=== PATIENT | male | born 1960 | race Asian ===

== ENCOUNTER → 2016-08-01 | Outpatient (CLI) | payer BC ==
[2016-08-01 12:34] LABS: Basophils % (A) 0 %; CH 28.9; CHCM 33.3; Eosinophils # (A) 0.1 k/uL (0-0.7); Eosinophils % (A) 2 %; HCT 43.5 % (39.0-53.0); HDW 2.48; HGB 14.3 gm/dL (13.0-17.5); Luc # (Auto) 0.11; Luc % (Auto) 2; Lymphocytes # (A) 2.3 k/uL (1.0-4.8); Lymphocytes % (A) 38 %; MCH 28.6 pg (25.0-35.0); MCHC 32.8 g/dL (31.0-37.0); MCV 87.2 fL (80.0-100.0); Mean Platelet Volume 8.8; Monocytes # (A) 0.2 k/uL (0-1.0); Monocytes % (A) 4 %; Neutrophils # (A) 3.2 k/uL (1.3-7.7); Neutrophils % (A) 54 %; RBC 4.99 m/uL (4.30-5.90); WBC (Perox) 6.17
[2016-08-01 12:47] LABS: ALT 32 U/L (21-72); AST 21 U/L (17-59); Alkaline Phosphatase 41 U/L (38-126); Amylase 49 U/L (30-110); Anion Gap 11 mmol/L; Blood Urea Nitrogen 15 mg/dL (9-20); Calcium 9.5 mg/dL (8.4-10.2); Carbon Dioxide 26 mmol/L (22-30); Chloride 103 mmol/L (98-107); Glucose 92 mg/dL (74-99); Non-African American GFR(MDRD) >60 (>60 ml/min/1.73 sqM); Potassium 4.5 mmol/L (3.5-5.1); Sodium 140 mmol/L (137-145); Total Bilirubin 0.6 mg/dL (0.2-1.3); Total Protein 7.2 g/dL (6.3-8.2)
[2016-08-01 13:54] LABS: Erythrocyte Sedimentation Rate 2 mm/hr (0-15)
== END | disposition home or self-care (01) ==
LOC: LABWHC1 12:11
PROVIDERS: ATTEND Family Medicine
DX: R10.9 Unspecified abdominal pain (principal)
CPT/HCPCS: 36415; 80053; 82150; 83690; 85025; 85652

== ENCOUNTER → 2016-08-02 | Outpatient (CLI) | payer BC ==
--- NOTE | 2016-08-02 08:30 | US ---
EXAMINATION TYPE: US abdomen complete DATE OF EXAM: 08/02/2016 7:47 AM COMPARISON: NONE CLINICAL HISTORY: R10.9 Abd Pain. EXAM MEASUREMENTS: Liver Length: 19 cm Gallbladder Wall: 0.2 cm CBD: 0.2 cm Spleen: 11 cm Right Kidney: 11.7 cm Left Kidney: 11.3 cm Pancreas: wnl, not seen in its entirety Liver: Perhaps borderline enlarged Gallbladder: wnl CBD: wnl Spleen: wnl Right Kidney: wnl Left Kidney: wnl Upper IVC: wnl Abd Aorta: wnl There is no ascites There is no hydronephrosis. IMPRESSION: Borderline enlarged liver.
== END | disposition home or self-care (01) ==
LOC: RADUSWWP 06:55
PROVIDERS: ATTEND Family Medicine
DX: R16.0 Hepatomegaly, not elsewhere classified (principal); R10.9 Unspecified abdominal pain
CPT/HCPCS: 76700

== ENCOUNTER → 2016-08-02 | Outpatient (CLI) | payer BC ==
--- NOTE | 2016-08-03 00:20 | MR ---
EXAMINATION TYPE: MR abdomen wo/w con DATE OF EXAM: 08/02/2016 10:07 PM COMPARISON: NONE HISTORY: Abdominal pain CONTRAST: Standard multiplanar, multisequence MRI departmental protocol without and utilizing MultiHance 20 mL intravenous gadolinium contrast. FINDINGS: The liver has normal size and contour. There is no focal defect. Gallbladder appears normal . Spleen has normal size and contour without a focal defect. There is uniform appearance of the pancr eas. There is no evidence of pancreatic mass. Bile ducts are not dilated. There is no evidence of adrenal mass. Kidneys have normal size and contour. There is no hydronephrosi s. There is no sign of retroperitoneal adenopathy. Common bile duct measures 5 mm. Pancreatic duct is normal. There is no sign of ascites. The remainder of the exam is unremarkable. There is no patholog ic enhancement. IMPRESSION: Negative MR scan of the abdomen. There is no evidence of abnormality of the hepatobiliary system.
== END | disposition home or self-care (01) ==
LOC: RADMRIMAIN 21:10
PROVIDERS: ATTEND Family Medicine
DX: R10.9 Unspecified abdominal pain (principal)
CPT/HCPCS: 74183; A9577; 76700

== ENCOUNTER → 2017-01-13 | Outpatient (CLI) | payer BC ==
[2017-01-13 08:20] LABS: CH 29.3; CHCM 33.1; HDW 2.57; HGB 14.3 gm/dL (13.0-17.5); MCH 28.9 pg (25.0-35.0); MCHC 32.5 g/dL (31.0-37.0); MCV 88.9 fL (80.0-100.0); RBC 4.96 m/uL (4.30-5.90); RDW 13.9 % (11.5-15.5); WBC 5.4 k/uL (3.8-10.6)
[2017-01-13 08:59] LABS: ALT 26 U/L (21-72); AST 21 U/L (17-59); Alkaline Phosphatase 41 U/L (38-126); Anion Gap 12 mmol/L; Blood Urea Nitrogen 15 mg/dL (9-20); Calcium 9.5 mg/dL (8.4-10.2); Carbon Dioxide 26 mmol/L (22-30); Chloride 106 mmol/L (98-107); Cholesterol 144 mg/dL (<200); Glucose 98 mg/dL (74-99); HDL Cholesterol 28 mg/dL (40-60); Non-African American GFR(MDRD) >60 (>60 ml/min/1.73 sqM); Sodium 144 mmol/L (137-145); Total Bilirubin 0.7 mg/dL (0.2-1.3); Total Protein 6.8 g/dL (6.3-8.2); Triglycerides 123 mg/dL (<150)
[2017-01-13 09:29] LABS: Hepatitis B Surface Ag Index 0.04
[2017-01-13 10:45] LABS: Prostate Specific Antigen 1.33 ng/mL (0.00-4.00)
[2017-01-13 17:19] LABS: Sex Hormone Binding Globulin 24.2 nmol/L (11.0-57.0); Testosterone, Bioavailable 156.4 ng/dL (60.8-409.9); Testosterone, Free 6.4 ng/dL (3.70-23.28)
== END | disposition home or self-care (01) ==
LOC: LABWHC1 07:35
PROVIDERS: ATTEND Family Medicine
DX: Z00.00 Encounter for general adult medical examination without abnormal findings (principal); E23.0 Hypopituitarism
CPT/HCPCS: 36415; 80053; 80061; 82040; 82306; 82626; 82672; 84153; 84270; 84403; 84443; 85027; 87340

== ENCOUNTER → 2017-03-03 | Outpatient (CLI) | payer BC ==
[2017-03-03 09:03] LABS: Basophils % (A) 0 %; CHCM 33.4; Eosinophils % (A) 0 %; HCT 41.3 % (39.0-53.0); HGB 13.1 gm/dL (13.0-17.5); Luc # (Auto) 0.11; Luc % (Auto) 2; Lymphocytes # (A) 1.8 k/uL (1.0-4.8); Lymphocytes % (A) 26 %; MCH 27.8 pg (25.0-35.0); MCHC 31.8 g/dL (31.0-37.0); MCV 87.4 fL (80.0-100.0); Mean Platelet Volume 9.6; Monocytes # (A) 0.3 k/uL (0-1.0); Monocytes % (A) 4 %; Neutrophils # (A) 4.8 k/uL (1.3-7.7); Neutrophils % (A) 68 %; RBC 4.72 m/uL (4.30-5.90); RDW 13.2 % (11.5-15.5); WBC (Perox) 7.33
[2017-03-03 09:59] LABS: ALT 26 U/L (21-72); AST 19 U/L (17-59); Alkaline Phosphatase 56 U/L (38-126); Anion Gap 11 mmol/L; Blood Urea Nitrogen 16 mg/dL (9-20); Calcium 9.4 mg/dL (8.4-10.2); Carbon Dioxide 28 mmol/L (22-30); Chloride 104 mmol/L (98-107); Glucose 96 mg/dL (74-99); Non-African American GFR(MDRD) >60 (>60 ml/min/1.73 sqM); Potassium 4.1 mmol/L (3.5-5.1); Sodium 143 mmol/L (137-145); Total Bilirubin 0.3 mg/dL (0.2-1.3); Total Protein 6.5 g/dL (6.3-8.2)
[2017-03-03 10:29] LABS: Prostate Specific Antigen 1.27 ng/mL (0.00-4.00)
[2017-03-03 18:31] LABS: Testosterone, Bioavailable 156.8 ng/dL (60.8-409.9); Testosterone, Free 6.5 ng/dL (3.70-23.28)
== END ==
LOC: LABWHC1 07:52
PROVIDERS: ATTEND Family Medicine
DX: I10 Essential (primary) hypertension (principal); R73.9 Hyperglycemia, unspecified; E29.1 Testicular hypofunction
CPT/HCPCS: 36415; 80053; 82040; 82306; 82672; 83036; 83525; 84153; 84270; 84403; 85025

== ENCOUNTER → 2017-10-20 | Outpatient (CLI) | payer BC ==
[2017-10-20 11:55] LABS: Basophils % (A) 0 %; Eosinophils % (A) 1 %; HCT 44.5 % (39.0-53.0); HGB 15.2 gm/dL (13.0-17.5); Lymphocytes # (A) 1.9 k/uL (1.0-4.8); Lymphocytes % (A) 45 %; MCH 28.5 pg (25.0-35.0); MCHC 34.1 g/dL (31.0-37.0); MCV 83.6 fL (80.0-100.0); Mean Platelet Volume 8.5; Monocytes # (A) 0.2 k/uL (0-1.0); Monocytes % (A) 4 %; Neutrophils % (A) 48 %; Platelet Count 196 k/uL (150-450); RBC 5.32 m/uL (4.30-5.90); RDW 12.7 % (11.5-15.5); WBC 4.2 k/uL (3.8-10.6)
[2017-10-20 12:09] LABS: ALT 30 U/L (21-72); AST 28 U/L (17-59); Albumin 4.6 g/dL (3.5-5.0); Alkaline Phosphatase 47 U/L (38-126); Anion Gap 15 mmol/L; Blood Urea Nitrogen 17 mg/dL (9-20); Carbon Dioxide 28 mmol/L (22-30); Chloride 102 mmol/L (98-107); Cholesterol 121 mg/dL (<200); Glucose 96 mg/dL (74-99); HDL Cholesterol 29 mg/dL (40-60); LDL Cholesterol,Calculated 66 mg/dL (0-99); Potassium 4.6 mmol/L (3.5-5.1); Sodium 145 mmol/L (137-145); Total Bilirubin 0.6 mg/dL (0.2-1.3); Total Protein 7.4 g/dL (6.3-8.2); Triglycerides 130 mg/dL (<150)
[2017-10-20 12:39] LABS: Prostate Specific Antigen 1.13 ng/mL (0.00-4.00)
[2017-10-20 17:58] LABS: Hemoglobin A1C 6.2 % (4.0-6.0)
== END | disposition home or self-care (01) ==
LOC: LABWHC1 11:03
PROVIDERS: ATTEND Internal Medicine
DX: Z00.00 Encounter for general adult medical examination without abnormal findings (principal); E23.0 Hypopituitarism; Z12.5 Encounter for screening for malignant neoplasm of prostate
CPT/HCPCS: 36415; 80053; 80061; 82672; 83036; 84153; 84402; 84403; 85025

== ENCOUNTER → 2018-03-23 | Outpatient (CLI) | payer BC ==
[2018-03-23 11:04] LABS: Basophils % (A) 0 %; Eosinophils % (A) 1 %; HCT 46.6 % (39.0-53.0); HGB 14.9 gm/dL (13.0-17.5); Lymphocytes # (A) 1.5 k/uL (1.0-4.8); Lymphocytes % (A) 40 %; MCH 27.8 pg (25.0-35.0); MCV 86.9 fL (80.0-100.0); Monocytes # (A) 0.2 k/uL (0-1.0); Monocytes % (A) 6 %; Neutrophils # (A) 1.9 k/uL (1.3-7.7); Neutrophils % (A) 51 %; Platelet Count 210 k/uL (150-450); RBC 5.36 m/uL (4.30-5.90); RDW 13.1 % (11.5-15.5); WBC 3.6 k/uL (3.8-10.6)
[2018-03-23 12:27] LABS: ALT 27 U/L (21-72); AST 27 U/L (17-59); Albumin 4.4 g/dL (3.5-5.0); Alkaline Phosphatase 53 U/L (38-126); Anion Gap 9 mmol/L; Blood Urea Nitrogen 12 mg/dL (9-20); Calcium 9.9 mg/dL (8.4-10.2); Carbon Dioxide 28 mmol/L (22-30); Chloride 106 mmol/L (98-107); Cholesterol 163 mg/dL (<200); Glucose 109 mg/dL (74-99); HDL Cholesterol 21 mg/dL (40-60); LDL Cholesterol,Calculated 120 mg/dL (0-99); Potassium 5.3 mmol/L (3.5-5.1); Sodium 143 mmol/L (137-145); Total Bilirubin 0.7 mg/dL (0.2-1.3); Total Protein 7.5 g/dL (6.3-8.2); Triglycerides 110 mg/dL (<150)
[2018-03-23 12:41] LABS: T4, Free (Free Thyroxine) 0.79 ng/dL (0.78-2.19)
[2018-03-23 12:55] LABS: Prostate Specific Antigen 1.62 ng/mL (0.00-4.00)
[2018-03-23 17:49] LABS: Hemoglobin A1C 6.2 % (4.0-6.0)
[2018-03-26 22:49] LABS: Testosterone, Free, LC/MS/MS 128.7 pg/mL (46.0-224.0)
== END ==
LOC: LABWHC1 09:45
PROVIDERS: ATTEND Family Medicine
DX: Z00.00 Encounter for general adult medical examination without abnormal findings (principal); E23.0 Hypopituitarism; Z12.5 Encounter for screening for malignant neoplasm of prostate
CPT/HCPCS: 36415; 80053; 80061; 82040; 82306; 82672; 83036; 84153; 84270; 84403; 84439; 84443; 85025

== ENCOUNTER → 2018-06-17 | Outpatient (CLI) | payer BC ==
[2018-06-17 09:22] LABS: Basophils % (A) 0 %; Eosinophils % (A) 1 %; HCT 44.4 % (39.0-53.0); HGB 14.2 gm/dL (13.0-17.5); Lymphocytes # (A) 1.8 k/uL (1.0-4.8); Lymphocytes % (A) 45 %; MCH 26.9 pg (25.0-35.0); MCV 84.3 fL (80.0-100.0); Monocytes # (A) 0.2 k/uL (0-1.0); Monocytes % (A) 4 %; Neutrophils # (A) 1.9 k/uL (1.3-7.7); Neutrophils % (A) 47 %; Platelet Count 216 k/uL (150-450); RBC 5.27 m/uL (4.30-5.90); RDW 13.1 % (11.5-15.5)
[2018-06-17 16:33] LABS: Albumin 4.6 g/dL (3.80-4.90); Albumin/Globulin Ratio 2.42 (1.20-2.10); Anion Gap 7.3 mmol/L (4.00-12.00); Calcium 9.3 mg/dL (8.7-10.3); Carbon Dioxide 27.7 mmol/L (21.6-31.8); Globulin 1.9 g/dL (1.6-3.3); LDL Cholesterol,Calculated 84.4 mg/dL (0.0-131.0); Potassium 4.6 mmol/L (3.5-5.5); Total Bilirubin 0.6 mg/dL (0.3-1.2); Total Protein 6.5 g/dL (6.2-8.2); VLDL Calculation 18.6 mg/dL (5.00-40.00)
[2018-06-17 17:47] LABS: Hemoglobin A1C 6.5 % (4.0-6.0)
[2018-06-19 18:55] LABS: Estrogens Total 144 pg/mL
== END ==
LOC: LABWHC1 08:45
PROVIDERS: ATTEND Family Medicine
DX: Z00.00 Encounter for general adult medical examination without abnormal findings (principal); E29.1 Testicular hypofunction; Z12.5 Encounter for screening for malignant neoplasm of prostate
CPT/HCPCS: 36415; 80053; 80061; 82040; 82672; 83036; 84153; 84270; 84403; 84443; 85025

== ENCOUNTER 2018-07-30 12:45 | Inpatient (IN) | payer BC ==
--- NOTE | 2018-07-30 12:27 | CT ---
EXAMINATION TYPE: CT brain wo con DATE OF EXAM: 07/30/2018 HISTORY: Dizziness and headache x [address] DLP: 1227 mGycm. Automated Exposure Control for Dose Reduction was Utilized. TECHNIQUE: CT scan of the head is performed without contrast. COMPARISON: None. FINDINGS: There is no acute intracranial hemorrhage or midline shift identified. There is diffuse v entricular and sulcal prominence consistent with diffuse age-related cerebral atrophy. There is nons pecific area of low-attenuation right frontal parietal junction with subtle sulcal effacement. The g lobes are intact and the visualized sinuses are clear. IMPRESSION: No acute intracranial hemorrhage or midline shift. There is mild diffuse age-related ce rebral atrophy noted. Vague area of low-attenuation suspicious for evolving acute infarct right MCA d istribution involving frontal and parietal lobes. Results communicated to ordering physician by radiology technologist via telephone at time of dictation.
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
[2018-07-30 13:31] LABS: Basophils % (A) 1 %; Eosinophils # (A) 0.1 k/uL (0-0.7); Eosinophils % (A) 1 %; HCT 46.9 % (39.0-53.0); HGB 15.2 gm/dL (13.0-17.5); Lymphocytes # (A) 1.6 k/uL (1.0-4.8); Lymphocytes % (A) 35 %; MCH 27.7 pg (25.0-35.0); MCHC 32.5 g/dL (31.0-37.0); MCV 85.2 fL (80.0-100.0); Monocytes # (A) 0.2 k/uL (0-1.0); Monocytes % (A) 4 %; Neutrophils # (A) 2.6 k/uL (1.3-7.7); Neutrophils % (A) 58 %; Platelet Count 189 k/uL (150-450); RBC 5.51 m/uL (4.30-5.90); RDW 13.9 % (11.5-15.5); WBC 4.5 k/uL (3.8-10.6)
[2018-07-30 13:42] LABS: ALT 35 U/L (21-72); AST 21 U/L (17-59); Albumin 4.8 g/dL (3.5-5.0); Alkaline Phosphatase 47 U/L (38-126); Anion Gap 10 mmol/L; Blood Urea Nitrogen 15 mg/dL (9-20); Calcium 9.8 mg/dL (8.4-10.2); Carbon Dioxide 26 mmol/L (22-30); Chloride 104 mmol/L (98-107); Glucose 96 mg/dL (74-99); Potassium 4.5 mmol/L (3.5-5.1); Sodium 140 mmol/L (137-145); Total Bilirubin 0.7 mg/dL (0.2-1.3); Total Protein 7.8 g/dL (6.3-8.2)
[2018-07-30 13:44] LABS: Partial Thromboplastin Time 25.9 sec (22.0-30.0)
--- NOTE | 2018-07-30 13:47 | CT ---
EXAMINATION TYPE: CT angio head neck DATE OF EXAM: 07/30/2018 HISTORY: Migraine and dizziness, abnormal CT. Neurodeficits per order. COMPARISON: NONE CT DLP: 607.1 mGycm. Automated Exposure Control for Dose Reduction was Utilized. TECHNIQUE: CTA scan of the head and neck are performed with IV Contrast, patient injected with 65 mL of Isovue 370, axial images are obtained, coronal and sagittal reformatted images are reviewed. Thre e-D reconstructed images are created on an independent workstation and reviewed. FINDINGS: Carotid/Vascular Structures: The ascending aorta measures up to 4.0 cm in diameter on axial image 3. There is mild peripheral plaque in the aortic arch. There is 4 vessel origin from the aortic arch whi ch is normal variant. No significant plaque or stenosis in the subclavian arteries is identified bila terally. Right common carotid artery shows normal origin from the right brachiocephalic artery. There is no significant stenosis in right common or internal carotid arteries. Mild peripheral calcified p laque proximal right internal carotid artery axial image 65 is noted. There is more moderate calcifie d plaque supraclinoid segment without significant stenosis. There is patent right external carotid ar sonal without significant stenosis. Left common and internal iliac arteries show mild fixed plaque at left carotid bulb extending into pr oximal internal carotid artery without significant stenosis. There is moderate calcified plaque supra clinoid segment. There is patent left external carotid artery without significant stenosis. There is codominant vertebral basilar system. Vertebral arteries are patent to basilar junction. Ther e are patent posterior to indicating arteries seen bilaterally. No significant focal stenosis or aneu rysmal change in the posterior circulation is appreciated. Images of the anterior circulation show pa tent anterior communicating artery without significant focal stenosis or aneurysmal change. There is successful visualization of the distal right MCA trifurcation noted. Other: There is persistent area of sulcal effacement and cuellar-white matter blurring right parietal r egion axial image 31 perhaps slightly more posterior and smaller in area of versus recent CT. There is straightening of cervical spine with mild to moderate spurring and disc space narrowing C4-C 5 through the C6-C7 levels. Posterior spur disc complexes are effacing anterior thecal sac at C5-C6 a nd C6-C7 levels. IMPRESSION: 1. No aneurysmal change or significant focal stenosis at level of [place]. 2. No significant focal stenosis in common or internal carotid arteries bilaterally. 3. Redemonstration of suspicious area right parietal lobe worrisome for evolving acute infarct slight ly changed in appearance from recent CT.
[2018-07-30 13:52] LABS: Creatine Kinase 93 U/L (55-170)
[2018-07-30 14:05] LABS: Creatine Kinase MB 1.1 ng/mL (0.0-2.4); Troponin I <0.012 ng/mL (0.000-0.034)
--- NOTE | 2018-07-30 14:15 | XR ---
EXAMINATION TYPE: XR chest 2V DATE OF EXAM: 07/30/2018 COMPARISON: Chest x-ray and CT chest June 16, 2012 HISTORY: Headache and dizziness. Altered mental status and weakness. TECHNIQUE: Frontal and lateral views of the chest are obtained. FINDINGS: Overlying EKG leads are seen. There is no focal air space opacity, pleural effusion, or pn eumothorax seen. The cardiac silhouette size is within normal limits. The osseous structures are i ntact. IMPRESSION: No acute cardiopulmonary process. No significant change from prior.
[2018-07-30] MEDS ORDERED: ASPIRIN 81 MG PO STA (14:19)
[2018-07-30] MEDS ORDERED: SODIUM CHLORIDE 0.9% 1,000 ML IV STA (14:19)
--- NOTE | 2018-07-30 15:33 | MR ---
MR brain without contrast HISTORY: Cerebral vascular accident, dizziness and headache Multiplanar multisequence imaging through the brain Correlation to CT angiogram and CT brain same date Restricted diffusion is noted in the posterior parietal lobe on the right, there is corresponding sig nal abnormality on T2 and inversion recovery sequence and cortical distribution. There is no hemorrha ge or hydrocephalus. There are normal vascular flow voids. Corpus callosum, pituitary, cervical medul gil junction, cerebellopontine angles are within normal limits. Orbits show symmetric appearance. IMPRESSION: Subacute infarct right parietal lobe.
[2018-07-30] MEDS ORDERED: PANTOPRAZOLE 40 MG TABLET PO PRN (16:06)
[2018-07-30] MEDS ORDERED: ATORVASTATIN 80 MG TAB PO STA (16:15)
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
[2018-07-30] MEDS: SODIUM CHLORIDE 0.9% 1,000 ML IV SCH (17:09)
[2018-07-30 17:26] LABS: HCT 41.4 % (39.0-53.0); MCH 28.8 pg (25.0-35.0); MCHC 33.9 g/dL (31.0-37.0); RBC 4.86 m/uL (4.30-5.90); RDW 13.8 % (11.5-15.5); WBC 4.6 k/uL (3.8-10.6)
[2018-07-30 17:27] LABS: Mean Platelet Volume 8.2; Platelet Count 169 k/uL (150-450)
[2018-07-30] MEDS ORDERED: NALOXONE 0.4 MG/ML 1 ML VIAL IV PRN (17:32)
[2018-07-30] MEDS ORDERED: HYDROcodone/APAP 5-325MG 1 EACH TAB PO PRN (17:32)
[2018-07-30] MEDS ORDERED: ACETAMINOPHEN TAB 325 MG TAB PO PRN (17:32)
[2018-07-30 17:46] LABS: ALT 25 U/L (21-72); AST 18 U/L (17-59); Albumin 3.8 g/dL (3.5-5.0); Alkaline Phosphatase 37 U/L (38-126); Anion Gap 8 mmol/L; Blood Urea Nitrogen 14 mg/dL (9-20); Carbon Dioxide 26 mmol/L (22-30); Chloride 102 mmol/L (98-107); Glucose 88 mg/dL (74-99); Potassium 4.4 mmol/L (3.5-5.1); Sodium 136 mmol/L (137-145); Total Bilirubin 0.9 mg/dL (0.2-1.3); Total Protein 6.5 g/dL (6.3-8.2)
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
[2018-07-30 18:04] LABS: T4, Free (Free Thyroxine) 0.93 ng/dL (0.78-2.19)
[2018-07-30 18:36] VITALS: BMI 30.2
[2018-07-30 20:54] LABS: Glucose,Whole Blood 98 mg/dL (75-99)
[2018-07-30] MEDS: FLECAINIDE 50 MG TAB PO SCH (21:04)
[2018-07-31 00:48] LABS: Hemoglobin A1C 6.7 % (4.0-6.0)
[2018-07-31] MEDS: SODIUM CHLORIDE 0.9% 1,000 ML IV SCH ×2 (02:26→15:46)
[2018-07-31 03:45] LABS: Cholesterol 110 mg/dL (<200); HDL Cholesterol 26 mg/dL (40-60); LDL Cholesterol,Calculated 65 mg/dL (0-99); Triglycerides 95 mg/dL (<150)
[2018-07-31] MEDS ORDERED: ASPIRIN 81 MG PO SCH (09:00)
[2018-07-31] MEDS ORDERED: BENAZEPRIL HCL 20 MG PO SCH (09:00)
[2018-07-31] MEDS ORDERED: fentaNYL (PF) 50 MCG/ML 2 ML AMP ONE (09:17)
[2018-07-31] MEDS: BENZOCAINE SPRAY 1 CAN TOPICAL ONE ×2 (09:39→09:54)
[2018-07-31] MEDS ORDERED: SODIUM CHLORIDE 0.9% 250 ML IV ONE (09:45)
[2018-07-31] MEDS ORDERED: MIDAZOLAM 2 MG/2 ML VIAL IVP ONE (09:54)
[2018-07-31] MEDS ORDERED: fentaNYL (PF) 50 MCG/ML 2 ML AMP IVP ONE (09:54)
[2018-07-31] MEDS: MIDAZOLAM 2 MG/2 ML VIAL IVP ONE ×2 (09:57→09:59)
--- NOTE | 2018-07-31 10:55 | ECHOT ---
TRANSESOPHAGEAL ECHOCARDIOGRAM INDICATION: Evaluation of left atrial appendage. PROCEDURE: After explaining the procedure to the patient, its risks and the complications, his blood pressure, heart rate, O2 saturation was monitored. The throat was sprayed with Cetacaine. He received 40 mg intravenous Versed, 50 mcg intravenous fentanyl. The probe was introduced into the esophagus without difficulty. Images were obtained. Following that, the probe was removed. There was no immediate complication. FINDINGS: Left atrial size is normal. Left atrial appendage is normal. Left ventricular size and systolic function are normal. The aortic valve is a tricuspid valve with mild calcification and preserved opening. Mitral valve and tricuspid valve is normal. Descending thoracic aorta is normal. No pericardial effusion was noted. Contrast bubble study revealed no evidence of shunting across the interatrial septum. Doppler pulse wave and color Doppler obtained and revealed mild mitral with mild tricuspid and moderate aortic regurgitation. There was no shunting by color Doppler study. CONCLUSION: 1. Normal left ventricular size and systolic function. 2. Normal appearance left atrial appendage. 3. Dilated ascending aorta measuring 4 cm. 4. Moderate aortic regurgitation with mild calcification of the valve. 5. Mild mitral and tricuspid regurgitation. 6. No shunting across the interatrial septum. 7. Normal appearance of the descending thoracic aorta. MMODL / IJN: [id number] /
--- NOTE | 2018-07-31 11:04 | PN ---
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 He is feeling well this morning. He is denying any chest pain. He denies any dizziness, palpitation. He denies any nausea or vomiting. He has continued to be at this time on aspirin 81 mg daily, Lipitor 80 mg daily, flecainide 100 mg twice a day, metformin 1000 mg daily, lisinopril 20 mg daily. PHYSICAL EXAMINATION: Blood pressure 136/70 with a heart rate in the 60s. LUNGS: Clear. HEART: Regular rate and rhythm, S1, S2. No S3 with systolic murmur and diastolic murmur heard at the base, no rub. ABDOMEN: Soft, nontender, positive bowel sounds, no organomegaly. EXTREMITIES: No edema, intact distal pulses. LAB DATA: Revealed BUN and creatinine 14 and 0.94. Cholesterol 110, LDL of 65, potassium 4.4, hemoglobin of 14. His glucose was 98. IMPRESSION: 1. Transient ischemic attack, resolved. 2. Paroxysmal atrial fibrillation, continues to be in sinus mechanism. 3. Hypertension. 4. Hyperlipidemia. 5. Diabetes mellitus. RECOMMENDATION: Patient will undergo transesophageal echocardiogram, then will initiate anticoagulation and if he is stable, I would expect he should be able to be discharged home in the next 24 to 48 hours. MMLILLIAML / QUANG: [id number] /
[2018-07-31] MEDS: metFORMIN 500 MG TAB PO SCH (11:51)
[2018-07-31] MEDS: ATORVASTATIN 80 MG TAB PO SCH (11:51)
[2018-07-31] MEDS: FLECAINIDE 50 MG TAB PO SCH ×2 (11:52→21:18)
[2018-07-31] MEDS: METOPROLOL SUCCINATE (ER) 50 MG TAB.ER.24H PO SCH (11:52)
--- NOTE | 2018-07-31 15:18 | P.PN ---
Subjective Progress Note Date: 07/31/18 Principal diagnosis: CVA, atrial fibrillation Patient seen and examined. No acute events overnight. Seen working with occupational therapy. He has no complaints today, feeling better in general. He denies any chest pain, shortness of breath or palpitations. Objective - Vital Signs Vital signs: Vital Signs Temp 98.6 F 07/31/18 12:03 Pulse 64 07/31/18 12:03 Resp 18 07/31/18 12:03 BP 126/63 07/31/18 12:03 Pulse Ox 96 07/31/18 12:03 Intake & Output 07/30/18 07/31/18 07/31/18 18:59 06:59 18:59 Intake Total 240 175 Balance 240 175 Weight 95.663 kg 95.5 kg Intake: IV 175 Oral 240 0 Other: # Voids 1 - Exam General: [non toxic], [no distress], [appears at stated age] Derm: [warm], [dry] Head: [atraumatic], [normocephalic], [symmetric] Eyes: [EOMI], [no lid lag], [anicteric sclera] Mouth: [no lip lesion], [mucus membranes moist] Cardiovascular: [S1S2 reg], [bradycardia], [positive DP pulse bilateral], Lungs: [CTA bilateral], [no rhonchi, no rales] , [no accessory muscle use] Abdominal: [soft], [ nontender to palpation], [no guarding], [no appreciable organomegaly] Ext: [no gross muscle atrophy], [no edema], [no contractures] Neuro: [no focal neuro deficits] Psych: [Alert], [oriented], [appropriate affect] - Labs CBC & Chem 7: 07/30/18 17:08 07/30/18 17:08 Labs: Abnormal Lab Results - Last 24 Hours (Table) 07/30/18 07/30/18 07/30/18 Range/Units 17:08 17:08 17:08 Sodium 136 L (137-145) mmol/L Hemoglobin A1c 6.7 H (4.0-6.0) % Alkaline Phosphatase 37 L (38-126) U/L HDL Cholesterol 26 L (40-60) mg/dL Assessment and Plan Assessment: Assessment and Plan 1. Subacute stroke in the right parietal lobe 2. Atrial fibrillation 3. Hypertension 4. DVT and GI prophylaxis 1. As seen on CT brain, CTA head and neck and MRI brain. Continue aspirin 81 mg by mouth daily, atorvastatin 80 mg by mouth daily. Advance neurochecks. Telemetry monitoring. Bedside swallow screen prior to diet. Fall precautions. A1c 6.7, lipid panel within normal limits. Cardiology consulted, GOSIA performed today, unremarkable. Will follow PT and OT recommendations. 2. Continue flecainide 100 mg by mouth twice a day, metoprolol 50 mg by mouth daily. Telemetry monitoring. TSH is within normal limits. Cardiology consulted, GOSIA performed today, unremarkable. Discussed with Dr. Garcia, plans to start Pradaxa tomorrow, observed for 1 more day. 3. BP 126/63. Continue lisinopril 20 mg mouth daily, metoprolol 50 mg by mouth daily. Monitor vitals, adjust medication as necessary. 4. SCD boots only. Patient admitted for CVA workup. GOSIA performed, unremarkable. Per cardiology, observed overnight, plans to start anticoagulation tomorrow. Likely discharge tomorrow.
[2018-07-31] MEDS: LISINOPRIL 20 MG TAB PO SCH (15:47)
[2018-07-31] MEDS ORDERED: diphenhydrAMINE 25 MG CAP PO STA (21:00)
[2018-08-01] MEDS: SODIUM CHLORIDE 0.9% 1,000 ML IV SCH ×2 (00:13→08:20)
[2018-08-01 06:47] LABS: Anion Gap 8 mmol/L; Blood Urea Nitrogen 18 mg/dL (9-20); Calcium 9.4 mg/dL (8.4-10.2); Carbon Dioxide 26 mmol/L (22-30); Chloride 103 mmol/L (98-107); Glucose 109 mg/dL (74-99); Potassium 4.6 mmol/L (3.5-5.1); Sodium 137 mmol/L (137-145)
[2018-08-01] MEDS ORDERED: HEPARIN SODIUM,PORCINE 5,000 UNIT/ML 1 ML VIAL SQ SCH (09:00)
[2018-08-01] MEDS ORDERED: DABIGATRAN 150 MG CAP PO SCH (09:00)
[2018-08-01] MEDS: metFORMIN 500 MG TAB PO SCH (09:10)
[2018-08-01] MEDS: FLECAINIDE 50 MG TAB PO SCH ×2 (09:10→21:22)
[2018-08-01] MEDS: ATORVASTATIN 80 MG TAB PO SCH (09:11)
[2018-08-01] MEDS: METOPROLOL SUCCINATE (ER) 50 MG TAB.ER.24H PO SCH (09:11)
--- NOTE | 2018-08-01 10:29 | PN ---
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 He is feeling well at this point. He is ambulating without difficulty. His GOSIA revealed no evidence of thrombus and there was evidence of moderate aortic regurgitation with dilatation of the ascending aorta. Hemodynamically, he is stable. He is in sinus mechanism on the monitor. He was started on Pradaxa 150 mg twice a day today. In addition to that he is on flecainide 100 mg twice a day, Zestril 20 mg daily, metformin 1000 mg daily, metoprolol succinate 50 mg daily and Lipitor 80 mg daily. PHYSICAL EXAMINATION: Blood pressure 107/70 with the heart rate in the 60s. LUNGS: Clear. HEART: Regular rate and rhythm. S1, S2. No S3 with systolic murmur heard at the base and a diastolic murmur. No rub. ABDOMEN: Soft, nontender. EXTREMITIES: No edema. LAB DATA: Lab data revealed BUN and creatinine of 18 and 1.04. IMPRESSION: 1. Status post transient ischemic attack, resolved. 2. Paroxysmal atrial fibrillation. 3. Hypertension. 4. Hyperlipidemia. 5. Aortic regurgitation. RECOMMENDATION: Patient will continue anticoagulation. If he remains stable, I would expect he should be able to be discharged home tomorrow. MMODL / IJN: [id number] /
--- NOTE | 2018-08-01 10:41 | P.PN ---
Subjective Progress Note Date: 08/01/18 Principal diagnosis: CVA Patient seen and examined. No acute events overnight. Patient is ambulating his room freely without any complications. Yesterday had mental cloudiness, has resolved today. Patient states that he feels back to his baseline. He denies any chest pain, shortness of breath, dizziness or palpitations. Objective - Vital Signs Vital signs: Vital Signs Temp 98.2 F 08/01/18 00:00 Pulse 65 08/01/18 04:00 Resp 16 08/01/18 04:00 BP 138/81 08/01/18 00:00 Pulse Ox 100 08/01/18 00:00 Intake & Output 07/31/18 08/01/18 08/01/18 18:59 06:59 18:59 Intake Total 415 Balance 415 Intake: IV 175 Oral 240 Other: # Bowel Movements 1 - Exam General: [non toxic], [no distress], [appears at stated age] Derm: [warm], [dry] Head: [atraumatic], [normocephalic], [symmetric] Eyes: [EOMI], [no lid lag], [anicteric sclera] Mouth: [no lip lesion], [mucus membranes moist] Cardiovascular: [S1S2 reg], [no murmur], [positive DP pulse bilateral], Lungs: [CTA bilateral], [no rhonchi, no rales] , [no accessory muscle use] Abdominal: [soft], [ nontender to palpation], [no guarding], [no appreciable organomegaly] Ext: [no gross muscle atrophy], [no edema], [no contractures] Neuro: [no focal neuro deficits] Psych: [Alert], [oriented], [appropriate affect] - Labs CBC & Chem 7: 07/30/18 17:08 08/01/18 05:49 Labs: Abnormal Lab Results - Last 24 Hours (Table) 08/01/18 Range/Units 05:49 Glucose 109 H (74-99) mg/dL Assessment and Plan Assessment: Assessment and Plan 1. Subacute stroke in the right parietal lobe 2. Atrial fibrillation 3. Hypertension 4. DVT and GI prophylaxis 1. As seen on CT brain, CTA head and neck and MRI brain. Continue aspirin 81 mg by mouth daily, atorvastatin 80 mg by mouth daily. Advance neurochecks. Telemetry monitoring. Bedside swallow screen prior to diet. Fall precautions. A1c 6.7, lipid panel within normal limits. Cardiology consulted, GOSIA performed yesterday, unremarkable. PT and OT cleared. Discussed with Dr. Pickens, Pradaxa to be started today, would like to observe for 3 doses to monitor for possible hemorrhagic conversion even though small risk. 2. Continue flecainide 100 mg by mouth twice a day, metoprolol 50 mg by mouth daily. Telemetry monitoring. TSH is within normal limits. Cardiology consulted, GOSIA performed today, unremarkable. 3. BP 107/76. Continue lisinopril 20 mg mouth daily, metoprolol 50 mg by mouth daily. Monitor vitals, adjust medication as necessary. 4. SCD boots only. Patient admitted for CVA workup. GOSIA performed, unremarkable. Cardiology, would like to observe the patient overnight since he is being started on Pradaxa. There Is a small risk for hemorrhagic conversion. Possible DC tomorrow evening.
[2018-08-01] MEDS: LISINOPRIL 20 MG TAB PO SCH (14:14)
[2018-08-01] MEDS ORDERED: diphenhydrAMINE 25 MG CAP PO PRN (19:27)
[2018-08-01] MEDS: DABIGATRAN 150 MG CAP PO SCH (21:22)
[2018-08-02 03:45] VITALS: RESP 16
[2018-08-02 08:58] VITALS: BP 111/64; PULSE 63; TEMP 98.2
[2018-08-02] MEDS: ATORVASTATIN 80 MG TAB PO SCH (09:14)
[2018-08-02] MEDS: LISINOPRIL 20 MG TAB PO SCH (09:14)
[2018-08-02] MEDS: FLECAINIDE 50 MG TAB PO SCH (09:14)
[2018-08-02] MEDS: metFORMIN 500 MG TAB PO SCH (09:14)
[2018-08-02] MEDS: METOPROLOL SUCCINATE (ER) 50 MG TAB.ER.24H PO SCH (09:14)
[2018-08-02] MEDS: DABIGATRAN 150 MG CAP PO SCH (09:15)
--- NOTE | 2018-08-02 09:47 | P.DS ---
Providers Date of admission: 07/30/18 16:28 Expected date of discharge: 08/02/18 Attending physician: Micheal Lord MD Consults: 07/30/18 16:27 Consult Physician Urgent Consulting Provider: Royer Pickens Consult Reason/Comments: Cardiology evaluation Do you want consulting provider notified?: Already Contacted [facility]: 58-year-old male with PMH of hypertension, hyperlipidemia, diabetes mellitus, atrial fibrillation presents the ED for lightheadedness and feelings of uncoordinated. Patient reports that symptoms started around 8 PM last night. Patient woke up this morning, and was able to go to work. At work, he experienced mental cloudiness and was unable to complete charting. He also had persistence of his discoordination and lightheadedness. He called his PCP Dr. Baird who ordered a computed tomography scan of the brain. CT of the brain showed an evolving infarct in the right MCA distribution. This prompted the patient to come to the ED. Patient denies any difficulty speaking, difficulty eating or difficulty articulating language. Patient currently reports resolution of his lightheadedness, mental cloudiness and uncoordination. He denies any headache, lower extremity edema, nausea, vomiting, fever, chills, cough, chest pain, shortness of breath, palpitations, changes in urination or bowel habits. No changes in appetite or weight. No numbness, weakness or tingling of any of the extremities. In the ED, CTA of the head and neck showed no aneurysm or focal stenosis. MRI of the brain confirmed subacute infarct in the right parietal lobe. CBC, CMP and coagulation panel was negative. Neuro interventionalists was consulted from the emergency room from an outside hospital. Recommendations were made to monitor the patient. Patient is admitted for evaluation of stroke, cardiology is on consult for management of atrial fibrillation. With regard to the right parietal subacute CVA, patient was started on aspirin 81 mg by mouth daily, Lipitor 80 mg by mouth daily. He was placed on advance neuro checks and telemetry monitoring. He underwent a bedside swallow screen prior to diet being started. He was placed on fall precautions. A1c was 6.7 and lipid panel was within normal limits. Cardiology was consulted and recommended a GOSIA to rule out a cardioembolic source for CVA. GOSIA was done and was unremarkable. PT and OT evaluated the patient cleared patient for discharge. With regard to his atrial fibrillation, home medication of caity denied and metoprolol were continued. TSH was within normal limits. Patient was started on Pradaxa 150 mg by mouth twice a day for anticoagulation for atrial fibrillation and was monitored for 3 doses. Patient was seen and examined prior to discharge. No acute events overnight. Patient reports improvement in his mentation. He denies any difficulty walking , difficulty speaking or difficulty swallowing. He denies any chest pain, shortness of breath or palpitations. General: [non toxic], [no distress], [appears at stated age] Derm: [warm], [dry] Head: [atraumatic], [normocephalic], [symmetric] Eyes: [EOMI], [no lid lag], [anicteric sclera] Mouth: [no lip lesion], [mucus membranes moist] Cardiovascular: [S1S2 reg], [no murmur], [positive DP pulse bilateral], Lungs: [CTA bilateral], [no rhonchi, no rales] , [no accessory muscle use] Abdominal: [soft], [ nontender to palpation], [no guarding], [no appreciable organomegaly] Ext: [no gross muscle atrophy], [no edema], [no contractures] Neuro: [no focal neuro deficits] Psych: [Alert], [oriented], [appropriate affect] Assessment and Plan 1. Subacute stroke in the right parietal lobe 2. Atrial fibrillation 3. Hypertension 4. DVT and GI prophylaxis 1. As seen on CT brain, CTA head and neck and MRI brain. Continue aspirin 81 mg by mouth daily, atorvastatin 80 mg by mouth daily. Advance neurochecks. Telemetry monitoring. Bedside swallow screen prior to diet. Fall precautions. A1c 6.7, lipid panel within normal limits. Cardiology consulted, GOSIA performed yesterday, unremarkable. PT and OT cleared. Discussed with Dr. Pickens, Pradaxa started yesterday, would like to observe for 3 doses to monitor for possible hemorrhagic conversion even though small risk. 2. Continue flecainide 100 mg by mouth twice a day, metoprolol 50 mg by mouth daily. Telemetry monitoring. TSH is within normal limits. Cardiology consulted, GOSIA performed today, unremarkable. 3. BP 111/64. Continue lisinopril 20 mg mouth daily, metoprolol 50 mg by mouth daily. Monitor vitals, adjust medication as necessary. 4. SCD boots only. Patient admitted for CVA workup. GOSIA performed, unremarkable. Symptoms have resolved. Cleared by cardiology. Will discharge home close follow-up PCP and neurology. Patient will follow-up with his label fuser tender Dr. Pickens for management of atrial fibrillation. Pertinent Studies: CTA of the head and neck CT brain MRI brain GOSIA Patient Condition at Discharge: Stable Plan - Discharge Summary Discharge Rx Participant: No New Discharge Prescriptions: New Aspirin 81 mg PO DAILY #90 chewable Dabigatran Etexilate Mesylate [Pradaxa] 150 mg PO BID #180 cap Rosuvastatin [Crestor] 40 mg PO DAILY #90 tablet Dabigatran [Pradaxa] 150 mg PO BID cap Continue Flecainide Acetate [Tambocor] 100 mg PO BID Metoprolol Succinate [Toprol XL] 50 mg PO DAILY Benazepril HCl 20 mg PO DAILY metFORMIN HCL 1,000 mg PO DAILY Omeprazole 20 mg PO DAILY PRN PRN Reason: Gi Upset Discontinued Simvastatin 40 mg PO DAILY Discharge Medication List Benazepril HCl 20 mg PO DAILY 05/28/14 [History] Flecainide Acetate [Tambocor] 100 mg PO BID 05/28/14 [History] Metoprolol Succinate [Toprol XL] 50 mg PO DAILY 05/28/14 [History] Omeprazole 20 mg PO DAILY PRN 07/30/18 [History] metFORMIN HCL 1,000 mg PO DAILY 07/30/18 [History] Aspirin 81 mg PO DAILY #90 chewable 08/02/18 [Rx] Dabigatran Etexilate Mesylate [Pradaxa] 150 mg PO BID #180 cap 08/02/18 [Rx] Dabigatran [Pradaxa] 150 mg PO BID cap 08/02/18 [Rx] Rosuvastatin [Crestor] 40 mg PO DAILY #90 tablet 08/02/18 [Rx] Follow up Appointment(s)/Referral(s): Royer Pickens MD [STAFF PHYSICIAN] - 3 Weeks (Please call for an appointment for august with Dr. Kwong) Bill Baird MD [Primary Care Provider] - 1-2 days Tremaine Franco DO [STAFF PHYSICIAN] - 1-2 Days Activity/Diet/Wound Care/Special Instructions: 30 day Pradaxa copay is $40, Prescription sent to [facility] to be ordered, it will be available on 08-01-18 per pharmacist. pt is eligible for free refills, pt was savings card Follow-up with Dr. Kwong in early August Please follow-up with your primary care provider within 1-2 days of discharge. Please follow-up with neurology within 1-2 days of discharge. Please follow-up with cardiology within 1 week of discharge. Please take a medications as advised. Please come back to the ED or call 911 for worsening dizziness, chest pain, shortness of breath, palpitations, new onset numbness/weakness or tingling of the extremities. Discharge Disposition: HOME SELF-CARE
--- NOTE | 2018-08-02 10:42 | PN ---
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 He had abnormality on his CT scan and MRI. He continued be in sinus mechanism. He was started on Pradaxa yesterday. His breathing stable. He denies any dizziness, palpitation. He denies any nausea. He is ambulating without difficulty. He continues to be on Lipitor 80 mg daily, Pradaxa 150 mg twice a day, flecainide 100 mg twice a day, lisinopril 20 mg daily, metformin 1 g daily, metoprolol succinate 50 mg daily. PHYSICAL EXAMINATION: Blood pressure 111/60 with a heart rate in 60s. LUNGS: Clear. HEART: Regular rhythm S1, S2. No S3. No rub. ABDOMEN: Soft nontender. EXTREMITIES: No edema. LAB DATA: Revealed BUN and creatinine of 18 and 1.04. IMPRESSION: 1. Evidence of neurological event with a cerebrovascular accident with resolution of his symptoms. 2. Paroxysmal fibrillation. 3. Hypertension. 4. Hyperlipidemia. 5. Aortic regurgitation. RECOMMENDATION: Patient will be discharged home today and followed as an outpatient with Dr. Pickens. MMODL / IJN: [id number] /
== END 2018-08-02 10:48 | disposition home or self-care (01) | DRG 66 ==
LOC: EC 12:45 → 3SCARD 16:28
PROVIDERS: ADMIT Family Medicine; ATTEND Family Medicine
DX: I63.511 Cerebral infarction due to unspecified occlusion or stenosis of right middle cerebral artery (principal); E11.9 Type 2 diabetes mellitus without complications; E78.5 Hyperlipidemia, unspecified; I10 Essential (primary) hypertension; I35.1 Nonrheumatic aortic (valve) insufficiency; I48.0 Paroxysmal atrial fibrillation; K21.9 Gastro-esophageal reflux disease without esophagitis; Z79.02 Long term (current) use of antithrombotics/antiplatelets; Z79.82 Long term (current) use of aspirin; Z79.84 Long term (current) use of oral hypoglycemic drugs; Z79.899 Other long term (current) drug therapy; Z87.891 Personal history of nicotine dependence; R29.700 NIHSS score 0
CPT/HCPCS: 36415; 70450; 70496; 70498; 70551; 71046; 80048; 80053; 80061; 82550; 82553; 83036; 84439; 84443; 84481; 84484; 85025; 85027; 85610; 85730; 93005; 93312; 93320; 93325; 96360; 96361; 99285

== ENCOUNTER → 2018-08-21 | Outpatient (CLI) | payer BC ==
--- NOTE | 2018-08-21 21:08 | MR ---
EXAMINATION TYPE: MR brain wo con DATE OF EXAM: 08/21/2018 COMPARISON: Prior MRI CT brain July 30, 2018. HISTORY: Cerebral vascular accident TECHNIQUE: Multiplanar, multisequence imaging of the brain and brainstem is performed without IV cont rast. FINDINGS: Diffusion weighted images demonstrate no evidence of a new infarct or other diffusion abnormality on current study. There is persistent T2 hyperintensity and sulcal effacement right parietal region at l evel posterior watershed at site where there was acute ischemia roughly 3 weeks earlier. There is no extraaxial fluid collection or significant white matter signal abnormality. The ventricu lar system and cisternal spaces remain normal in size and appearance. The brain volume is age approp riate. Midline structures demonstrate normal morphology. The craniocervical junction appears within normal limits. Normal vascular flow voids are present. There is new mild to moderate mucosal thickening with dependent fluid in the right maxillary sinus. There is stable mild mucosal thickening involving ethm oid sinuses bilaterally. Nasal septum remains deviated to left of midline. Globes are intact bilatera lly. IMPRESSION: 1. Expected evolution of acute infarct right parietal lobe posterior watershed region from 07/30/2018 with persistent edema and local mass effect/sulcal effacement. No new infarcts are evident. 2. New right maxillary sinus disease noted. Correlate clinically.
== END | disposition home or self-care (01) ==
LOC: RADMRIMAIN 17:33
PROVIDERS: ATTEND Family Medicine
DX: G93.89 Other specified disorders of brain (principal); I63.9 Cerebral infarction, unspecified
CPT/HCPCS: 70551

== ENCOUNTER → 2019-05-28 | Outpatient (CLI) | payer BC ==
[2019-05-28 09:33] LABS: Basophils % (A) 0 %; Eosinophils % (A) 1 %; HCT 43.3 % (39.0-53.0); HGB 14.5 gm/dL (13.0-17.5); Lymphocytes # (A) 1.4 k/uL (1.0-4.8); Lymphocytes % (A) 49 %; MCH 28.1 pg (25.0-35.0); MCHC 33.5 g/dL (31.0-37.0); Mean Platelet Volume 9.3; Monocytes # (A) 0.1 k/uL (0-1.0); Monocytes % (A) 5 %; Neutrophils # (A) 1.2 k/uL (1.3-7.7); Neutrophils % (A) 42 %; Platelet Count 220 k/uL (150-450); RBC 5.16 m/uL (4.30-5.90); RDW 12.8 % (11.5-15.5); WBC 2.9 k/uL (3.8-10.6)
[2019-05-28 17:34] LABS: African American GFR (CKD) 84.7 (60.0-200.0); Albumin 4.5 g/dL (3.80-4.90); Albumin/Globulin Ratio 2.25 (1.60-3.17); Anion Gap 6.9 mmol/L (4.00-12.00); BUN/Creat Ratio 9.09 Ratio (12.00-20.00); Calcium 9.3 mg/dL (8.7-10.3); Carbon Dioxide 28.1 mmol/L (21.6-31.8); Chol/HDL Ratio 3.55; LDL Cholesterol,Calculated 40.2 mg/dL (0.0-131.0); Non-African American GFR(CKD) 73.1 (60.0-200.0); Potassium 4.6 mmol/L (3.5-5.5); Total Bilirubin 0.4 mg/dL (0.3-1.2); Total Protein 6.5 g/dL (6.2-8.2); VLDL Calculation 15.8 mg/dL (5.00-40.00)
[2019-05-28 19:20] LABS: Hemoglobin A1C 6.3 % (4.0-6.0)
[2019-05-29 14:40] LABS: Estrogens Total 125 pg/mL
== END ==
LOC: LABWHC1 08:28
PROVIDERS: ATTEND Family Medicine
DX: Z00.00 Encounter for general adult medical examination without abnormal findings (principal); Z12.5 Encounter for screening for malignant neoplasm of prostate; E29.1 Testicular hypofunction
CPT/HCPCS: 36415; 80053; 80061; 82040; 82672; 83036; 84153; 84270; 84403; 84439; 84443; 85025

== ENCOUNTER → 2020-01-28 | Outpatient (CLI) | payer BC ==
[2020-01-28 10:55] LABS: Basophils % (A) 0 %; Eosinophils % (A) 1 %; HCT 42.9 % (39.0-53.0); HGB 13.9 gm/dL (13.0-17.5); Lymphocytes # (A) 1.7 k/uL (1.0-4.8); Lymphocytes % (A) 54 %; MCH 27.5 pg (25.0-35.0); MCHC 32.3 g/dL (31.0-37.0); MCV 85.2 fL (80.0-100.0); Mean Platelet Volume 9.3; Monocytes # (A) 0.1 k/uL (0-1.0); Monocytes % (A) 4 %; Neutrophils # (A) 1.3 k/uL (1.3-7.7); Neutrophils % (A) 39 %; Platelet Count 189 k/uL (150-450); RBC 5.04 m/uL (4.30-5.90); RDW 12.7 % (11.5-15.5); WBC 3.2 k/uL (3.8-10.6)
[2020-01-28 17:42] LABS: Erythrocyte Sedimentation Rate 5 mm/Hr (0-20)
[2020-01-28 19:13] LABS: Albumin 4.6 g/dL (3.80-4.90); Albumin/Globulin Ratio 2.19 (1.60-3.17); Anion Gap 9.3 mmol/L (4.00-12.00); Carbon Dioxide 25.7 mmol/L (21.6-31.8); Globulin 2.1 g/dL (1.6-3.3); Non-African American GFR(CKD) 93.2 (60.0-200.0); Potassium 4.4 mmol/L (3.5-5.5); Total Bilirubin 0.5 mg/dL (0.3-1.2); Total Protein 6.7 g/dL (6.2-8.2)
[2020-01-28 20:11] LABS: Hemoglobin A1C 6.3 % (4.0-6.0)
== END | disposition home or self-care (01) ==
LOC: LABWHC1 09:14
PROVIDERS: ATTEND Dermatology MOHS-Micrographic Surgery
DX: Z00.00 Encounter for general adult medical examination without abnormal findings (principal); M32.10 Systemic lupus erythematosus, organ or system involvement unspecified; E32.0 Persistent hyperplasia of thymus; Z12.5 Encounter for screening for malignant neoplasm of prostate; E55.9 Vitamin D deficiency, unspecified
CPT/HCPCS: 36415; 80053; 82040; 82306; 82672; 82955; 83036; 84153; 84270; 84403; 84443; 85025; 85652; 86038

== ENCOUNTER → 2021-06-20 | Outpatient (CLI) | payer BC ==
--- NOTE | 2021-06-20 17:11 | MR ---
MRI brain without contrast HISTORY: Word finding difficulty, cerebrovascular accident Multiplanar multisequence imaging obtained through the brain, correlation prior brain MRI 08/21/2018 There is restricted diffusion involving the espitia radiata region on the left, corresponding hyperint ensity is present on inversion recovery and T2-weighted sequences. Area of previous cerebral vascular accident involving the right parietal lobe is again noted with associated encephalomalacia and hyper intensity within the white matter consistent with gliosis. No evident hemorrhage or hydrocephalus. Ri ght maxillary sinus disease has resolved. There are expected vascular flow voids. Corpus callosum, pi tuitary, cervical medullary junction, cerebellopontine angles are stable. Mild inflammatory changes s uspected within the temporal bone on the right similar to prior. Orbits show symmetric appearance. IMPRESSION: Acute cerebrovascular accident as described. Chronic cerebrovascular accident is also not ed.
== END | disposition home or self-care (01) ==
LOC: RADMRIMAIN 15:57
PROVIDERS: ATTEND Psychiatry & Neurology Neurology
DX: I63.9 Cerebral infarction, unspecified (principal)
CPT/HCPCS: 70551

== ENCOUNTER 2021-06-21 11:04 | Day surgery (SDC) | payer BC ==
[~2021-06-21 11:04] MED LIST: SODIUM CHLORIDE 0.9% 500 ML 500 ML IV SCH
[2021-06-21 11:43] LABS: Glucose,Whole Blood 96 mg/dL (75-99)
[2021-06-21 11:46] VITALS: TEMP 97.2
[2021-06-21] MEDS ORDERED: fentaNYL (PF) 50 MCG/ML 2 ML AMP ONE (11:46)
[2021-06-21 12:03] LABS: Basophils % (A) 1 %; Eosinophils % (A) 1 %; Lymphocytes # (A) 1.6 k/uL (1.0-4.8); Lymphocytes % (A) 50 %; MCH 28.8 pg (25.0-35.0); MCHC 33.2 g/dL (31.0-37.0); MCV 86.6 fL (80.0-100.0); Mean Platelet Volume 9.9; Monocytes # (A) 0.1 k/uL (0-1.0); Monocytes % (A) 4 %; Neutrophils # (A) 1.3 k/uL (1.3-7.7); Neutrophils % (A) 41 %; Platelet Count 190 k/uL (150-450); WBC 3.2 k/uL (3.8-10.6)
[2021-06-21] MEDS ORDERED: BENZOCAINE SPRAY 1 CAN TOPICAL ONE (12:15)
[2021-06-21] MEDS ORDERED: MIDAZOLAM 2 MG/2 ML VIAL IV ONE ×2 (12:17→12:24)
[2021-06-21] MEDS ORDERED: fentaNYL (PF) 50 MCG/ML 2 ML AMP IV ONE (12:17)
[2021-06-21 12:18] LABS: ALT 18 U/L (4-49); AST 33 U/L (17-59); African American GFR (CKD) >90 (>60 ml/min/1.73 sqM); Albumin 4.7 g/dL (3.5-5.0); Alkaline Phosphatase 49 U/L (38-126); Anion Gap 12 mmol/L; Blood Urea Nitrogen 11 mg/dL (9-20); C Reactive Protein <0.5 mg/dL (<1.0); Calcium 9.5 mg/dL (8.4-10.2); Carbon Dioxide 25 mmol/L (22-30); Chloride 102 mmol/L (98-107); Glucose 96 mg/dL (74-99); Non-African American GFR(CKD) >90 (>60 ml/min/1.73 sqM); Potassium 4.5 mmol/L (3.5-5.1); Sodium 139 mmol/L (137-145); Total Bilirubin 0.9 mg/dL (0.2-1.3); Total Protein 7.6 g/dL (6.3-8.2)
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
[2021-06-21] MEDS ORDERED: SODIUM CHLORIDE 0.9% 1,000 ML IV SCH (12:45)
[2021-06-21 12:57] LABS: Erythrocyte Sedimentation Rate 4 mm/hr (0-15)
--- NOTE | 2021-06-21 13:15 | ECHOT ---
TRANSESOPHAGEAL ECHOCARDIOGRAM INDICATION: Evaluation of intracardiac thrombus. PROCEDURE: After explaining the procedure to the patient, its risks and the complications, his blood pressure, heart rate, O2 saturation was monitored. The throat was sprayed with Cetacaine. He received 3 mg intravenous Versed, 50 mcg intravenous fentanyl. The probe was introduced into the esophagus without difficulty. Images were obtained. The probe was removed. There was no immediate complication. FINDINGS: Left atrial size is upper size of normal. Left atrial appendage is normal. Left ventricular size and systolic function is normal. The aortic valve is a tricuspid valve with mild fibrocalcific changes and preserved opening. The mitral valve revealed mild thickening of the mitral valve leaflets. Tricuspid valve is normal. No pericardial effusion was noted. Contrast bubble study revealed no evidence of shunting across the interatrial septum. The ascending aorta is dilated measuring up to 4.4 cm. Mild atherosclerotic changes in the descending thoracic aorta was noted. Doppler pulse wave and color Doppler obtained revealed moderate severe central aortic regurgitation with mild mitral regurgitation. There was no shunting by color Doppler study. CONCLUSION: 1. Normal left atrial size with normal appearance left atrial appendage. 2. Normal left ventricular size and systolic function. 3. Fibrocalcific changes of the aortic cusp with dilated ascending aorta and root and moderate to severe aortic regurgitation. 4. Mild tricuspid regurgitation with mild thickening of the mitral valve leaflets. 5. Mild atherosclerotic changes of the descending thoracic aorta. 6. No pericardial effusion. 7. No shunting across the interatrial septum. MMODL / IJN: [id number] / MTDD
[2021-06-21 15:26] VITALS: BP 145/85; PULSE 62; RESP 16
[2021-06-21 21:10] LABS: Chol/HDL Ratio 3.36 Ratio; LDL Cholesterol,Calculated 47.4 mg/dL (0.0-131.0); VLDL Calculation 16.06 mg/dL (5.00-40.00)
[2021-06-22] MEDS ORDERED: metFORMIN 500 MG TAB PO SCH (07:30)
[2021-06-22] MEDS ORDERED: ATORVASTATIN 40 MG TAB PO SCH (09:00)
[2021-06-22] MEDS ORDERED: FLECAINIDE 50 MG TAB PO SCH (09:00)
[2021-06-22] MEDS ORDERED: RIVAROXABAN 20 MG TAB PO SCH (09:00)
[2021-06-22] MEDS ORDERED: ASPIRIN 81 MG PO SCH (09:00)
[2021-06-22] MEDS ORDERED: METOPROLOL SUCCINATE (ER) 50 MG TAB.ER.24H PO SCH (09:00)
== END 2021-06-21 14:00 | disposition home or self-care (01) ==
LOC: CATHCVL 11:04
PROVIDERS: ATTEND Internal Medicine Interventional Cardiology
DX: I63.9 Cerebral infarction, unspecified (principal); I08.3 Combined rheumatic disorders of mitral, aortic and tricuspid valves; I10 Essential (primary) hypertension; E11.9 Type 2 diabetes mellitus without complications; I48.91 Unspecified atrial fibrillation; I20.9 Angina pectoris, unspecified; K21.9 Gastro-esophageal reflux disease without esophagitis; E78.5 Hyperlipidemia, unspecified; K44.9 Diaphragmatic hernia without obstruction or gangrene; K64.9 Unspecified hemorrhoids; Z20.822 Contact with and (suspected) exposure to COVID-19; Z87.19 Personal history of other diseases of the digestive system; Z87.891 Personal history of nicotine dependence; Z79.899 Other long term (current) drug therapy; Z79.84 Long term (current) use of oral hypoglycemic drugs; Z79.01 Long term (current) use of anticoagulants; Z98.890 Other specified postprocedural states; Z80.49 Family history of malignant neoplasm of other genital organs; Z82.49 Family history of ischemic heart disease and other diseases of the circulatory system
CPT/HCPCS: 93312; 93320; 93325; 80061; 80053; 85652; 84443; 85025; 86140; 83036; 87635; G0103; J2250; J3010

== ENCOUNTER → 2021-06-21 | Outpatient (CLI) | payer BC ==
--- NOTE | 2021-06-22 02:19 | MR ---
EXAMINATION TYPE: MR angio head wo/neck wo/w con DATE OF EXAM: 06/21/2021 COMPARISON: None HISTORY: CVA Occlusion,Abn MRI, Acute Ischemic Stroke Left Hemisphere CONTRAST: Standard multiplanar, multisequence MRI departmental protocol images were obtained without contrast a nd with 8 mL intravenous Gadavist gadolinium contrast. There is arterial flow in the distal internal carotid arteries bilaterally. Vessels appear widely pat ent. There is arterial flow in the vertebrobasilar artery system. There is arterial flow in the anter ior middle and posterior cerebral arteries. There is no evidence of intracranial aneurysm or neovascu larity. There is luminal narrowing of the A1 segment of the left anterior cerebral artery. The distal left anterior cerebral artery appears normal. The right middle cerebral artery appears normal. There is no mass effect. IMPRESSION: There is some irregular narrowing of the proximal left anterior cerebral artery which could be hemody namically significant. No evidence of any significant narrowing of the right middle cerebral artery in this patient with roni dence of infarct in the right posterior temporal parietal lobe.
== END | disposition home or self-care (01) ==
LOC: RADMRIMAIN 16:12
PROVIDERS: ATTEND Psychiatry & Neurology Neurology
DX: I66.9 Occlusion and stenosis of unspecified cerebral artery (principal)
CPT/HCPCS: 70544; 70549; A9585

== ENCOUNTER → 2021-07-19 | Outpatient (CLI) | payer BC ==
[2021-07-19 17:14] LABS: Cardiolipin Ab IgG Interp NEGATIVE (NEGATIVE); Cardiolipin Ab IgM Interp NEGATIVE (NEGATIVE); Cardiolipin IgA Antibody <2.0 U/mL; Cardiolipin IgM Antibody 1.8 U/mL
[2021-07-20 11:37] LABS: APTT 73 Sec(s) (<43); APTT 1:1 Mix 47 Sec(s) (<43); DRVVT 1:1 Mix 54 Sec(s) (<44); DRVVT Confirmation Positive (Negative); Dilute Russell Viper Venom 87 Sec(s) (<44); Hexagonal Phase Neutralization Negative (Negative)
[2021-07-22 10:44] LABS: Protein C (Activity) 143 % (71-138)
[2021-07-24 01:37] LABS: Prothrombin 20210 (Factor II) NEGATIVE
== END | disposition home or self-care (01) ==
LOC: LABWHC1 07-18 16:05
PROVIDERS: ATTEND Internal Medicine Hematology & Oncology
DX: I10 Essential (primary) hypertension (principal); I63.511 Cerebral infarction due to unspecified occlusion or stenosis of right middle cerebral artery; E78.2 Mixed hyperlipidemia; Z86.73 Personal history of transient ischemic attack (TIA), and cerebral infarction without residual deficits
CPT/HCPCS: 36415; 81240; 81241; 85303; 85306; 85598; 85613; 85730; 85732; 86146; 86147; 86800

== ENCOUNTER → 2021-09-10 | Outpatient (CLI) | payer BC ==
[2021-09-10 12:23] LABS: Basophils # (A) 0.01 X 10*3/uL (0.00-0.10); Basophils % (A) 0.3 %; Eosinophils # (A) 0.04 X 10*3/uL (0.04-0.35); Eosinophils % (A) 1.3 %; HCT 39.6 % (39.6-50.0); HGB 12.5 g/dL (13.0-17.0); Immature Grans, Automated 0 %; Lymphocytes # (A) 1.47 X 10*3/uL (0.90-5.00); Lymphocytes % (A) 49.2 %; MCH 27.4 pg (27.0-32.0); MCHC 31.6 g/dL (32.0-37.0); MCV 86.7 fL (80.0-97.0); Mean Platelet Volume 11.1 fL (9.5-12.2); Monocytes # (A) 0.21 X 10*3/uL (0.20-1.00); NRBC Per 100 WBC 0 /100 WBCS (0.0-0.0); Neutrophils # (A) 1.26 X 10*3/uL (1.80-7.70); Neutrophils % (A) 42.2 %; Platelet Count 220 X 10*3/uL (140-440); RBC 4.57 X 10*6/uL (4.40-5.60); RDW 13.2 % (11.5-14.5); WBC 2.99 X 10*3/uL (4.50-10.00)
[2021-09-10 12:46] LABS: ALT 15 U/L (10-49); AST 21 U/L (14-35); African American GFR (CKD) 102.3 (60.0-200.0); Albumin 4.4 g/dL (3.8-4.9); Albumin/Globulin Ratio 1.84 (1.60-3.17); Alkaline Phosphatase 55 U/L (41-126); BUN/Creat Ratio 13.66 Ratio (12.00-20.00); Blood Urea Nitrogen 12.7 mg/dL (9.0-27.0); Calcium 9.2 mg/dL (8.7-10.3); Carbon Dioxide 23.7 mmol/L (20.0-27.5); Chloride 106 mmol/L (96-109); Chol/HDL Ratio 2.83 Ratio; Globulin 2.4 g/dL (1.6-3.3); Glucose 112 mg/dL (70-110); LDL Cholesterol,Calculated 25.1 mg/dL (0.0-131.0); Non-African American GFR(CKD) 88.3 (60.0-200.0); Potassium 4.2 mmol/L (3.5-5.5); Sodium 138 mmol/L (135-145); Total Protein 6.7 g/dL (6.2-8.2)
== END | disposition home or self-care (01) ==
LOC: LABWHC1 08:01
PROVIDERS: ATTEND Family Medicine
DX: Z00.00 Encounter for general adult medical examination without abnormal findings (principal); Z12.5 Encounter for screening for malignant neoplasm of prostate; L93.2 Other local lupus erythematosus
CPT/HCPCS: 36415; 80053; 80061; 82306; 83036; 84153; 84443; 85025; 86038

== ENCOUNTER → 2022-05-23 | Outpatient (CLI) | payer BC ==
[2022-05-23 16:01] LABS: Basophils # (A) 0.01 X 10*3/uL (0.00-0.10); Basophils % (A) 0.5 %; Eosinophils # (A) 0.01 X 10*3/uL (0.04-0.35); Eosinophils % (A) 0.5 %; HCT 43.3 % (39.6-50.0); HGB 13.7 g/dL (13.0-17.0); Immature Grans, Automated 0.5 %; Lymphocytes # (A) 1.42 X 10*3/uL (0.90-5.00); Lymphocytes % (A) 67.3 %; MCH 27.5 pg (27.0-32.0); MCHC 31.6 g/dL (32.0-37.0); MCV 86.9 fL (80.0-97.0); Mean Platelet Volume 11.2 fL (9.5-12.2); Monocytes # (A) 0.21 X 10*3/uL (0.20-1.00); NRBC Per 100 WBC 0 /100 WBCS (0.0-0.0); Neutrophils # (A) 0.45 X 10*3/uL (1.80-7.70); Neutrophils % (A) 21.2 %; Platelet Count 256 X 10*3/uL (140-440); RBC 4.98 X 10*6/uL (4.40-5.60); RDW 13.2 % (11.5-14.5); WBC 2.11 X 10*3/uL (4.50-10.00)
[2022-05-23 18:25] LABS: ALT 16 U/L (10-49); AST 22 U/L (14-35); African American GFR (CKD) 93.1 (60.0-200.0); Albumin 4.6 g/dL (3.8-4.9); Albumin/Globulin Ratio 1.77 (1.60-3.17); Alkaline Phosphatase 60 U/L (41-126); Blood Urea Nitrogen 11.9 mg/dL (9.0-27.0); Calcium 9.5 mg/dL (8.7-10.3); Carbon Dioxide 22.7 mmol/L (20.0-27.5); Chloride 103 mmol/L (96-109); Chol/HDL Ratio 2.75 Ratio; Creatine Kinase 156 U/L (35-257); Globulin 2.6 g/dL (1.6-3.3); Glucose 90 mg/dL (70-110); LDL Cholesterol,Calculated 36.3 mg/dL (0.0-131.0); Non-African American GFR(CKD) 80.3 (60.0-200.0); Potassium 4.2 mmol/L (3.5-5.5); Sodium 139 mmol/L (135-145); Total Protein 7.2 g/dL (6.2-8.2)
== END | disposition home or self-care (01) ==
LOC: LABWHC1 08:40
PROVIDERS: ATTEND Family Medicine
DX: Z00.00 Encounter for general adult medical examination without abnormal findings (principal); Z12.5 Encounter for screening for malignant neoplasm of prostate; E55.9 Vitamin D deficiency, unspecified; E78.5 Hyperlipidemia, unspecified
CPT/HCPCS: 36415; 80053; 80061; 82306; 82550; 83036; 84153; 84439; 84443; 85025

== ENCOUNTER → 2022-07-05 | Outpatient (CLI) | payer BC ==
[2022-07-05 10:42] LABS: Basophils # (A) 0 X 10*3/uL (0.00-0.10); Basophils % (A) 0 %; Eosinophils # (A) 0.01 X 10*3/uL (0.04-0.35); Eosinophils % (A) 0.5 %; HCT 41.2 % (39.6-50.0); HGB 12.8 g/dL (13.0-17.0); Immature Grans, Automated 0 %; Lymphocytes # (A) 1.38 X 10*3/uL (0.90-5.00); MCH 26.6 pg (27.0-32.0); MCHC 31.1 g/dL (32.0-37.0); MCV 85.5 fL (80.0-97.0); Mean Platelet Volume 10.9 fL (9.5-12.2); Monocytes # (A) 0.22 X 10*3/uL (0.20-1.00); Monocytes % (A) 10.8 %; NRBC Per 100 WBC 0 /100 WBCS (0.0-0.0); Neutrophils # (A) 0.42 X 10*3/uL (1.80-7.70); Neutrophils % (A) 20.7 %; Platelet Count 201 X 10*3/uL (140-440); RBC 4.82 X 10*6/uL (4.40-5.60); RDW 12.8 % (11.5-14.5); WBC 2.03 X 10*3/uL (4.50-10.00)
[2022-07-05 12:34] LABS: Erythrocyte Sedimentation Rate 4 mm/Hr (0-20)
[2022-07-06 03:11] LABS: African American GFR (CKD) 93.1 (60.0-200.0); Albumin 4.3 g/dL (3.8-4.9); Albumin/Globulin Ratio 1.65 (1.60-3.17); Anion Gap 9.2 mmol/L (10.00-18.00); BUN/Creat Ratio 11.3 Ratio (12.00-20.00); Blood Urea Nitrogen 11.3 mg/dL (9.0-27.0); Calcium 9.2 mg/dL (8.7-10.3); Carbon Dioxide 24.8 mmol/L (20.0-27.5); Globulin 2.6 g/dL (1.6-3.3); Non-African American GFR(CKD) 80.3 (60.0-200.0); Potassium 4.2 mmol/L (3.5-5.5); T4, Free (Free Thyroxine) 0.88 ng/dL (0.800-1.800); Total Bilirubin 0.3 mg/dL (0.30-1.20); Total Protein 6.9 g/dL (6.2-8.2)
== END | disposition home or self-care (01) ==
LOC: LABWHC1 07:31
PROVIDERS: ATTEND Pediatrics
DX: Z00.00 Encounter for general adult medical examination without abnormal findings (principal)
CPT/HCPCS: 36415; 80053; 83036; 84439; 84443; 85025; 85652

== ENCOUNTER → 2022-07-05 | Outpatient (CLI) | payer BC ==
[2022-07-06 18:54] LABS: Iron 108 ug/dL (65-175); Rheumatoid Factor, Qnt <10 IU/mL (0-15)
[2022-07-07 13:16] LABS: Free Kappa Lt Chain Qnt, Serum 1.99 mg/dL (0.33-1.94); Free Lambda Lt Chain Qnt, Seru 1.96 mg/dL (0.57-2.63)
[2022-07-07 22:54] LABS: HIV 2 AB Non-Reactive (Non-Reactive); HIV AB P24 Non-Reactive (Non-Reactive); HIV P24 AG Non-Reactive (Non-Reactive)
== END | disposition home or self-care (01) ==
LOC: LABWHC1 16:25
PROVIDERS: ATTEND Internal Medicine Hematology & Oncology
DX: D64.9 Anemia, unspecified (principal); D70.9 Neutropenia, unspecified
CPT/HCPCS: 36415; 82728; 82746; 83540; 83550; 83883; 83921; 85652; 86038; 86431; 87390

== ENCOUNTER → 2022-07-20 | Outpatient (CLI) | payer BC ==
[2022-07-20 16:01] LABS: Basophils # (A) 0 X 10*3/uL (0.00-0.10); Basophils % (A) 0 %; Eosinophils # (A) 0.01 X 10*3/uL (0.04-0.35); Eosinophils % (A) 0.5 %; HCT 40.6 % (39.6-50.0); HGB 12.8 g/dL (13.0-17.0); Immature Grans, Automated 0 %; Lymphocytes # (A) 1.25 X 10*3/uL (0.90-5.00); Lymphocytes % (A) 67.2 %; MCH 26.7 pg (27.0-32.0); MCHC 31.5 g/dL (32.0-37.0); MCV 84.8 fL (80.0-97.0); Mean Platelet Volume 11.3 fL (9.5-12.2); Monocytes # (A) 0.18 X 10*3/uL (0.20-1.00); Monocytes % (A) 9.7 %; NRBC Per 100 WBC 0 /100 WBCS (0.0-0.0); Neutrophils # (A) 0.42 X 10*3/uL (1.80-7.70); Neutrophils % (A) 22.6 %; Platelet Count 195 X 10*3/uL (140-440); RBC 4.79 X 10*6/uL (4.40-5.60); WBC 1.86 X 10*3/uL (4.50-10.00)
== END | disposition home or self-care (01) ==
LOC: LABWHC1 08:55
PROVIDERS: ATTEND Internal Medicine Hematology & Oncology
DX: D72.819 Decreased white blood cell count, unspecified (principal)
CPT/HCPCS: 36415; 85025

== ENCOUNTER → 2022-09-06 | Outpatient (CLI) | payer BC ==
[2022-09-06 23:08] LABS: HCT 42.9 % (39.6-50.0); HGB 13.5 g/dL (13.0-17.0); MCH 27.1 pg (27.0-32.0); MCHC 31.5 g/dL (32.0-37.0); Mean Platelet Volume 11.4 fL (9.5-12.2); NRBC Per 100 WBC 0 /100 WBCS (0.0-0.0); Platelet Count 218 X 10*3/uL (140-440); RBC 4.99 X 10*6/uL (4.40-5.60); RDW 13.7 % (11.5-14.5); WBC 2.33 X 10*3/uL (4.50-10.00)
[2022-09-07 00:17] LABS: C Reactive Protein <0.30 mg/dL (0.00-0.80)
[2022-09-07 01:27] LABS: Basophils # (A) 0 X 10*3/uL (0.00-0.10); Basophils % (A) 0 %; Elliptocytes 2+; Eosinophils # (A) 0.01 X 10*3/uL (0.04-0.35); Eosinophils % (A) 0.4 %; Immature Grans, Automated 0.9 %; Lymphocytes # (A) 1.45 X 10*3/uL (0.90-5.00); Lymphocytes % (A) 62.2 %; Monocytes # (A) 0.23 X 10*3/uL (0.20-1.00); Monocytes % (A) 9.9 %; Neutrophils # (A) 0.62 X 10*3/uL (1.80-7.70); Neutrophils % (A) 26.6 %
== END | disposition home or self-care (01) ==
LOC: LABWHC1 15:57
PROVIDERS: ATTEND Pediatrics
DX: Z00.00 Encounter for general adult medical examination without abnormal findings (principal)
CPT/HCPCS: 36415; 82306; 84153; 84443; 85025; 86038; 86140

== ENCOUNTER → 2023-06-02 | Outpatient (CLI) | payer BC ==
[2023-06-02 14:07] LABS: ALT 23 U/L (10-49); AST 21 U/L (14-35); Albumin 4.1 g/dL (3.8-4.9); Albumin/Globulin Ratio 1.52 Ratio (1.60-3.17); Alkaline Phosphatase 55 U/L (41-126); Blood Urea Nitrogen 14.1 mg/dL (9.0-27.0); Calcium 9.5 mg/dL (8.7-10.3); Carbon Dioxide 24.5 mmol/L (21.6-31.8); Chloride 103 mmol/L (96-109); Chol/HDL Ratio 2.71 Ratio; Globulin 2.7 g/dL (1.6-3.3); Glucose 102 mg/dL (70-110); LDL Cholesterol,Calculated 39.4 mg/dL (0.0-131.0); Potassium 4.8 mmol/L (3.5-5.5); Prostate Specific Antigen 1.52 ng/mL (0.000-4.500); Sodium 139 mmol/L (135-145); Total Bilirubin 0.4 mg/dL (0.3-1.2); Total Protein 6.8 g/dL (6.2-8.2); VLDL Calculation 13.58 mg/dL (5.00-40.00)
[2023-06-02 14:37] LABS: Basophils # (A) 0.01 X 10*3/uL (0.00-0.10); Basophils % (A) 0.4 %; Eosinophils # (A) 0.02 X 10*3/uL (0.04-0.35); Eosinophils % (A) 0.7 %; HCT 40.8 % (39.6-50.0); HGB 12.8 g/dL (13.0-17.0); Lymphocytes # (A) 1.46 X 10*3/uL (0.90-5.00); Lymphocytes % (A) 53.9 %; MCH 26.5 pg (27.0-32.0); MCHC 31.4 g/dL (32.0-37.0); MCV 84.5 FL (80.0-97.0); Mean Platelet Volume 10.7 FL (9.5-12.2); Monocytes # (A) 0.35 X 10*3/uL (0.20-1.00); Monocytes % (A) 12.9 %; NRBC Per 100 WBC 0 X 10*3/uL (0.00-0.01); Neutrophils # (A) 0.83 X 10*3/uL (1.80-7.70); Neutrophils % (A) 30.6 %; Platelet Count 275 X 10*3/uL (140-440); RBC 4.83 X 10*6/uL (4.40-5.60); RDW 13.3 % (11.5-14.5); WBC 2.71 X 10*3/uL (4.50-10.00)
== END | disposition home or self-care (01) ==
LOC: LABWHC1 08:10
PROVIDERS: ATTEND Family Medicine
DX: Z00.00 Encounter for general adult medical examination without abnormal findings (principal); Z12.5 Encounter for screening for malignant neoplasm of prostate; E55.9 Vitamin D deficiency, unspecified
CPT/HCPCS: 36415; 80053; 80061; 82306; 84153; 84443; 85025

== ENCOUNTER → 2023-09-22 | Outpatient (CLI) | payer BC ==
[2023-09-22 13:19] LABS: Basophils # (A) 0 X 10*3/uL (0.00-0.10); Basophils % (A) 0 %; Eosinophils # (A) 0.01 X 10*3/uL (0.04-0.35); Eosinophils % (A) 0.5 %; HCT 40.7 % (39.6-50.0); HGB 12.9 g/dL (13.0-17.0); Lymphocytes # (A) 1.21 X 10*3/uL (0.90-5.00); Lymphocytes % (A) 64.7 %; MCH 26.9 pg (27.0-32.0); MCHC 31.7 g/dL (32.0-37.0); Mean Platelet Volume 10.5 FL (9.5-12.2); Monocytes # (A) 0.17 X 10*3/uL (0.20-1.00); Monocytes % (A) 9.1 %; NRBC Per 100 WBC 0 X 10*3/uL (0.00-0.01); Neutrophils # (A) 0.47 X 10*3/uL (1.80-7.70); Neutrophils % (A) 25.2 %; Platelet Count 261 X 10*3/uL (140-440); RBC 4.79 X 10*6/uL (4.40-5.60); RDW 13.4 % (11.5-14.5); WBC 1.87 X 10*3/uL (4.50-10.00)
[2023-09-22 13:28] LABS: ALT 14 U/L (10-49); AST 23 U/L (14-35); Albumin 4.4 g/dL (3.8-4.9); Albumin/Globulin Ratio 1.63 Ratio (1.60-3.17); Alkaline Phosphatase 64 U/L (41-126); BUN/Creat Ratio 14.89 Ratio (12.00-20.00); Blood Urea Nitrogen 13.4 mg/dL (9.0-27.0); Calcium 9.5 mg/dL (8.7-10.3); Carbon Dioxide 26.3 mmol/L (21.6-31.8); Chloride 104 mmol/L (96-109); Globulin 2.7 g/dL (1.6-3.3); Glucose 89 mg/dL (70-110); Potassium 4.5 mmol/L (3.5-5.5); Sodium 140 mmol/L (135-145); Total Bilirubin <0.2 mg/dL (0.3-1.2); Total Protein 7.1 g/dL (6.2-8.2)
== END | disposition home or self-care (01) ==
LOC: LABWHC1 08:21
PROVIDERS: ATTEND Pediatrics
DX: D46.9 Myelodysplastic syndrome, unspecified (principal); E11.65 Type 2 diabetes mellitus with hyperglycemia
CPT/HCPCS: 36415; 80053; 82652; 83036; 84443; 85025

== ENCOUNTER → 2023-12-04 | Outpatient (CLI) | payer BC ==
--- NOTE | 2023-12-05 01:07 | MR ---
EXAMINATION TYPE: MR lumbar spine wo con DATE OF EXAM: 12/04/2023 COMPARISON: None HISTORY: 63-year-old male low back pain into the left side for one month. TECHNIQUE: Multiplanar, multisequence images of the lumbar spine were acquired without IV contrast. FINDINGS: Ectatic upper abdominal aorta to 2.7 cm. No prevertebral paravertebral soft tissue abnormality is see n. No suspicious bone marrow replacement. There is some fatty Modic type II endplate changes anteriorly at L4-L5. Mild degenerative disc disease throughout the mid and lower lumbar spine with a desiccated and mildly bulging discs. Small posterior annular fissure noted at L4-L5 and eccentric with towards the left at L5-S1. Disc bulge mildly impresses on the ventral thecal sac at both L4-L5 and L5-S1 level without any signi ficant spinal canal stenosis. Conus medullaris is normal. There is mild facet arthropathy mid to lower lumbar spine. Vertebral body heights are preserved and alignment are maintained. On the right, changes result in mild neuroforaminal stenosis at L4-L5. On the left, changes result in mild neural foraminal stenosis at L5-S1. However, in addition, disc bu lge at L5-S1 abuts the traversing left S1 nerve root and there is a annular fissure in this location as well, refer to sagittal STIR series 401 image 7 and axial image 3. IMPRESSION: 1. Mild degenerative disc disease mid to lower lumbar spine characterized by desiccated and mildly bu lging discs. No large focal disc herniation or significant spinal canal stenosis. 2. Mild facet arthropathy lower lumbar spine without malalignment. 3. Disc bulge at L5-S1 abuts the traversing left S1 nerve root. Annular fissure noted in this same lo cation eccentric towards the left. 4. Additional small posterior annular fissure at L4-L5. 5. Mild left neuroforaminal stenosis at L5-S1 and mild on the right at L4-L5.
--- NOTE | 2023-12-05 01:16 | CT ---
EXAMINATION TYPE: CT chest wo con DATE OF EXAM: 12/04/2023 COMPARISON: 06/16/2012 HISTORY: 63-year-old male R05.3 chronic cough TECHNIQUE: Contiguous axial scanning of the chest without IV contrast. Coronal/sagittal reconstructio ns performed. CT DLP: 340.6mGycm. Automatic exposure control utilized for a dose reduction. FINDINGS: Heart is normal size without pericardial effusion. LAD and RCA coronary artery calcifications are pre sent. Possible aneurysm aortic root at 4.9 cm versus estimated 4.0 cm, previously. Limited by motion and la ck of contrast. Ascending aorta estimated at 4.2 cm versus 4.0 cm, previously. Ectatic upper descendi ng thoracic aorta to 3.4 cm versus 3.2 cm, previously. Mild atelectatic arch calcifications with bovi ne configuration to the aortic arch. Borderline caliber to the main right and left pulmonary arteries measuring up to 2.6 cm. Findings are nonspecific but may be seen in the setting of pulmonary arterial hypertension. No thoracic lymphadenopathy by CT size criteria. Lungs show no consolidation or pleural effusion. Minimal reticular change at the lung bases and minim al associated medial bibasilar bronchiolectasis. Visualized upper abdomen shows no gross abnormality. Bones: There is some developing DISH within the mid and lower thoracic spine. IMPRESSION: 1. Minimal interstitial fibrosis at the lung bases. Borderline caliber to the main right and left pul monary arteries. Findings are nonspecific but may potentially reflect underlying pulmonary arterial h ypertension. 2. Prominent LAD and RCA coronary calcifications, not seen back in 2011. 3. Possible aneurysm of the aortic root up to 4.9 cm. Limited by cardiac motion and lack of contrast. 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
== END | disposition home or self-care (01) ==
LOC: RADCTMAIN 17:58
PROVIDERS: ATTEND Family Medicine
DX: M47.816 Spondylosis without myelopathy or radiculopathy, lumbar region (principal); M48.061 Spinal stenosis, lumbar region without neurogenic claudication; R05.3 Chronic cough; I27.21 Secondary pulmonary arterial hypertension; J84.10 Pulmonary fibrosis, unspecified; M51.36 Other intervertebral disc degeneration, lumbar region; M51.37 Other intervertebral disc degeneration, lumbosacral region
CPT/HCPCS: 71250; 72148

== ENCOUNTER → 2023-12-05 | Outpatient (CLI) | payer BC ==
[2023-12-05 08:20] VITALS: BP 119/77; PULSE 78; RESP 16
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
== END ==
LOC: PNWHC3 07:35
PROVIDERS: ATTEND Specialist
DX: M51.36 Other intervertebral disc degeneration, lumbar region (principal); M48.061 Spinal stenosis, lumbar region without neurogenic claudication; Z87.891 Personal history of nicotine dependence
CPT/HCPCS: 99211

== ENCOUNTER → 2024-03-29 | Outpatient (CLI) | payer BC ==
[2024-03-29 15:04] LABS: ALT 14 U/L (10-49); AST 25 U/L (14-35); Albumin 4.2 g/dL (3.8-4.9); Albumin/Globulin Ratio 1.62 Ratio (1.60-3.17); Alkaline Phosphatase 55 U/L (41-126); BUN/Creat Ratio 8.56 Ratio (12.00-20.00); Blood Urea Nitrogen 7.7 mg/dL (9.0-27.0); Calcium 9.2 mg/dL (8.7-10.3); Carbon Dioxide 23.5 mmol/L (21.6-31.8); Chloride 107 mmol/L (96-109); Globulin 2.6 g/dL (1.6-3.3); Glucose 97 mg/dL (70-110); Potassium 4.6 mmol/L (3.5-5.5); Sodium 141 mmol/L (135-145); T4, Free (Free Thyroxine) 0.91 ng/dL (0.80-1.80); Total Bilirubin 0.3 mg/dL (0.3-1.2); Total Protein 6.8 g/dL (6.2-8.2)
[2024-03-29 16:15] LABS: Basophils # (M) 0 X 10*3/uL (0.00-0.10); Eosinophils # (M) 0 X 10*3/uL (0.04-0.35); HCT 39.7 % (39.6-50.0); HGB 12.7 g/dL (13.0-17.0); Lymphocytes # (M) 1.38 X 10*3/uL (0.90-5.00); MCH 27.3 pg (27.0-32.0); MCV 85.4 FL (80.0-97.0); Mean Platelet Volume 10.2 FL (9.5-12.2); Monocytes # (M) 0.15 X 10*3/uL (0.20-1.00); NRBC Per 100 WBC 0 X 10*3/uL (0.00-0.01); Neutrophils # (M) 0.29 X 10*3/uL (1.80-7.70); Neutrophils % (M) 16 %; Platelet Count 254 X 10*3/uL (140-440); RBC 4.65 X 10*6/uL (4.40-5.60); RBC Morphology Normal (Normal); WBC 1.82 X 10*3/uL (4.50-10.00)
== END | disposition home or self-care (01) ==
LOC: LABWHC1 08:11
PROVIDERS: ATTEND Pediatrics
DX: D70.9 Neutropenia, unspecified (principal)
CPT/HCPCS: 36415; 80053; 84439; 84443; 85025

== ENCOUNTER 2024-05-16 16:20 | Inpatient (IN) | payer BC ==
[2024-05-16] MEDS ORDERED: NALOXONE 0.4 MG/ML 1 ML VIAL IV PRN (17:44)
[2024-05-16] MEDS ORDERED: BENZOCAINE/MENTHOL LOZENG 1 EACH LOZENGE MUCOUS MEM PRN (17:46)
[2024-05-16] MEDS ORDERED: ONDANSETRON 4 MG/2 ML VIAL IVP PRN (17:46)
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
[2024-05-16 18:42] LABS: HCT 40.3 % (39.0-53.0); HGB 13.1 gm/dL (13.0-17.5); MCH 27.5 pg (25.0-35.0); MCHC 32.4 g/dL (31.0-37.0); MCV 84.8 fL (80.0-100.0); Mean Platelet Volume 8.3; Platelet Count 175 k/uL (150-450); RBC 4.76 m/uL (4.30-5.90); RDW 13.5 % (11.5-15.5)
[2024-05-16 18:52] LABS: INR 1.2 (<1.2); Prothrombin Time 12.6 sec (10.0-12.5)
[2024-05-16 19:02] LABS: African American GFR (CKD) 70 (>60 ml/min/1.73 sqM); Anion Gap 6 mmol/L; Blood Urea Nitrogen 15 mg/dL (9-20); Carbon Dioxide 24 mmol/L (22-30); Chloride 104 mmol/L (98-107); Glucose 101 mg/dL (74-99); LDH 192 U/L (120-246); Non-African American GFR(CKD) 61 (>60 ml/min/1.73 sqM); Potassium 4.2 mmol/L (3.5-5.1); Sodium 134 mmol/L (137-145)
--- NOTE | 2024-05-16 19:02 | XR ---
EXAMINATION TYPE: XR chest 2V DATE OF EXAM: 05/16/2024 6:51 PM COMPARISON: Chest radiographs from 07/30/2018 CLINICAL INDICATION: Male, 64 years old with history of neutropenia; fever TECHNIQUE: XR chest 2V Frontal and lateral views of the chest. FINDINGS: Lungs/Pleura: Subtle airspace opacities in the lung bases. There is no evidence of pleural effusion, focal consolidation, or pneumothorax. Pulmonary vascularity: Unremarkable. Heart/mediastinum: Cardiomediastinal silhouette is unremarkable. Musculoskeletal: No acute osseous pathology. IMPRESSION: There may be subtle airspace opacities the right lung base correlate for pneumonia [facility], , 05/16/2024 6:59 PM
[2024-05-16 19:03] LABS: Albumin 4.5 g/dL (3.5-5.0); Albumin/Globulin Ratio 1.5; Bilirubin,Unconjugated 0.5 mg/dL (0.0-1.1); Total Bilirubin 0.6 mg/dL (0.2-1.3); Total Protein 7.5 g/dL (6.3-8.2)
[2024-05-16 19:04] LABS: Appearance,Urine Clear (Clear); Bilirubin,Urine Negative (Negative); Blood,Urine Trace (Negative); Color,Urine Colorless; Glucose,Urine (UA) Negative (Negative); Hyaline Casts,Urine 1 /lpf (0-2); Ketones,Urine Negative (Negative); Leukocyte Esterase,Urine Negative (Negative); Mucus,Urine Rare /hpf; Nitrite,Urine Negative (Negative); PH, Urine 5.5 (5.0-8.0); Protein,Urine Negative (Negative); RBC,Urine <1 /hpf (0-5); Specific Gravity,Urine 1.014 (1.001-1.035); Squamous Epithelial Cell,Urine <1 /hpf (0-4); Urobilinogen,Urine <2.0 mg/dL (<2.0); WBC,Urine <1 /hpf (0-5)
[2024-05-16 19:07] LABS: WBC 1.1 k/uL (3.8-10.6)
[2024-05-16] MEDS: CEFEPIME 1 GM in SODIUM CHLORIDE 0.9% 50 ML IVPB SCH (19:09)
[2024-05-16] MEDS: SODIUM CHLORIDE 0.9% 1,000 ML IV SCH (19:10)
[2024-05-16 19:28] LABS: Neutrophils % (M) 40 %
[2024-05-16 19:31] LABS: Basophils # (M) 0.01 k/uL (0-0.2); Lymphocytes # (M) 0.53 k/uL (1.0-4.8); Monocytes # (M) 0.12 k/uL (0-1.0); Neutrophils # (M) 0.44 k/uL (1.3-7.7); Nucleated Red Blood Cells 0 /100 WBC (0-0); Total Cells Counted 100
[2024-05-16] MEDS: ACETAMINOPHEN TAB 325 MG TAB PO PRN (21:11)
[2024-05-17 01:24] LABS: Hepatitis A Antibody IgM Nonreactive (Nonreactive); Hepatitis B Core IgM Nonreactive (Nonreactive); Hepatitis B Surface Antigen Nonreactive (Nonreactive); Hepatitis C IgG Antibody Nonreactive (Nonreactive)
[2024-05-17 04:40] LABS: HIV 2 AB Non-Reactive (Non-Reactive); HIV AB P24 Non-Reactive (Non-Reactive); HIV P24 AG Non-Reactive (Non-Reactive)
[2024-05-17] MEDS: ASPIRIN 81 MG PO SCH (06:09)
[2024-05-17] MEDS: PANTOPRAZOLE 40 MG TABLET PO SCH (06:09)
[2024-05-17] MEDS: FLECAINIDE 50 MG TAB PO SCH (06:09)
[2024-05-17] MEDS: APIXABAN 5 MG TAB PO SCH (06:09)
[2024-05-17 08:13] LABS: HCT 44.3 % (39.0-53.0); HGB 14.1 gm/dL (13.0-17.5); MCHC 31.9 g/dL (31.0-37.0); MCV 84.7 fL (80.0-100.0); Mean Platelet Volume 8.3; Platelet Count 213 k/uL (150-450); RBC 5.23 m/uL (4.30-5.90); RDW 13.5 % (11.5-15.5); WBC 1.8 k/uL (3.8-10.6)
[2024-05-17 08:14] LABS: African American GFR (CKD) 65 (>60 ml/min/1.73 sqM); Anion Gap 14 mmol/L; Blood Urea Nitrogen 16 mg/dL (9-20); Calcium 9.4 mg/dL (8.4-10.2); Carbon Dioxide 24 mmol/L (22-30); Chloride 100 mmol/L (98-107); Glucose 118 mg/dL (74-99); LDH 173 U/L (120-246); Magnesium 1.9 mg/dL (1.6-2.3); Non-African American GFR(CKD) 56 (>60 ml/min/1.73 sqM); Potassium 4.6 mmol/L (3.5-5.1); Sodium 138 mmol/L (137-145)
[2024-05-17 08:44] LABS: Neutrophils % (M) 27 %
[2024-05-17 08:45] LABS: Monocytes # (M) 0.22 k/uL (0-1.0); Neutrophils # (M) 0.49 k/uL (1.3-7.7); Nucleated Red Blood Cells 0 /100 WBC (0-0); Total Cells Counted 100
[2024-05-17 09:00] VITALS: BP 118/75; PULSE 71; RESP 17; TEMP 98.7
[2024-05-17] MEDS ORDERED: ENOXAPARIN 40 MG/0.4 ML SYRINGE SQ SCH (09:00)
--- NOTE | 2024-05-17 13:19 | P.DS ---
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 Stoner) comes in for fever. Chest x-ray showed opacities in the right lung base concerning for pneumonia. EKG showed normal sinus rhythm with a rate of [address]-T changes good R wave progression normal axis QTc 422. On admission, labs showed WBC 1.1 hemoglobin 13.1 MCV 84 platelet count 1 75,000 neutrophils 0.44 lymphocytes 0.53 PT 12.6 INR 1.2 sodium 134 potassium 4.2 chloride 104 bicarb 24 BUN 15 creatinine 1.25 glucose 101 calcium 9 lactate dehydrogenase 192 total bilirubin 0.6 AST 27 ALT 14 ALP 50. Urinalysis unremarkable. Treponema antibodies, hepatitis panel, HIV antibody panel are all negative. Influenza negative, RSV negative. Positive for SARS-CoV-2 on PCR. Patient admitted for evaluation of neutropenic fever and to rule out sepsis. Patient placed on IV fluids and empiric cefepime. Patient was found to be COVID- positive. Patient did not have any new symptoms or complications throughout stay. Vitals remained stable throughout stay. Patient is discharged today and was prescribed Paxlovid and advised to monitor oxygenation status. Advised to return if O2 saturations begin to decline less than 94%. Advised to follow-up with PCP on outpatient basis. Final Diagnosis: #. Neutropenic fever secondary to COVID-19 #. Chronic severe neutropenia #. Atrial fibrillation controlled #. Hypertension #. Hyperlipidemia #. History of CVA x 2 Physical examination: Vital signs reviewed General: non toxic, no distress, appears at stated age, normal weight Derm: no unusual rashes/lesions, warm Head: atraumatic, normocephalic, symmetric Eyes: EOMI, anicteric sclera, pupils equal round reactive to light ENT: Nose and ears atraumatic Neck: No cervical lymphadenopathy, trachea midline, supple Mouth: no lip lesion, mucus membranes moist Cardiovascular: S1S2 reg, no murmur Lungs: CTA bilateral, no rhonchi, no rales, no accessory muscle use Abdominal: soft, nondistended, nontender to palpation, no guarding Ext: muscle strength 5 out of 5 in all 4 extremities grossly, no gross muscle atrophy, no contractures, positive dorsalis pedis pulse bilateral, no extremity edema Neuro: CN II-XI grossly intact, no gross focal neuro deficits Psych: Alert, oriented, appropriate affect and mood I saw and evaluated the patient during the ng and critical portions of this encounter, and discussed the case in detail with the resident author of this note, I agree with the Assessment and Plan, and my changes, if any, are highlighted in blue. Plan - Discharge Summary Discharge Rx Participant: Yes New Discharge Prescriptions: New Acetaminophen Tab [Tylenol] 650 mg PO Q6HR PRN #0 tab PRN Reason: Mild Pain Or Fever > 100.5 Nirmatrelvir/Ritonavir [Paxlovid 150-100 mg Dose Pack] 1 each PO BID #1 each Continue Flecainide Acetate [Tambocor] 100 mg PO BID@0600,1800 Metoprolol Succinate [Toprol XL] 50 mg PO HS@1800 Multivitamins, Thera [Multivitamin (formulary)] 1 tab PO DAILY@0600 Apixaban [Eliquis] 5 mg PO BID@0600,1800 Valsartan 320 mg PO HS@1800 Semaglutide [Ozempic] 2 mg SQ MOORE Rosuvastatin Calcium [Crestor] 40 mg PO HS@1800 Aspirin [Adult Low Dose Aspirin EC] 81 mg PO DAILY@0600 Pantoprazole [Protonix] 40 mg PO DAILY@0600 Discharge Medication List Flecainide Acetate [Tambocor] 100 mg PO BID@0600,1800 05/28/14 [History] Metoprolol Succinate [Toprol XL] 50 mg PO HS@1800 05/28/14 [History] Apixaban [Eliquis] 5 mg PO BID@0600,1800 05/16/24 [History] Aspirin [Adult Low Dose Aspirin EC] 81 mg PO DAILY@0600 05/16/24 [History] Multivitamins, Thera [Multivitamin (formulary)] 1 tab PO DAILY@0600 05/16/24 [History] Pantoprazole [Protonix] 40 mg PO DAILY@0600 05/16/24 [History] Rosuvastatin Calcium [Crestor] 40 mg PO HS@1800 05/16/24 [History] Semaglutide [Ozempic] 2 mg SQ MOORE 05/16/24 [History] Valsartan 320 mg PO HS@1800 05/16/24 [History] Acetaminophen Tab [Tylenol] 650 mg PO Q6HR PRN #0 tab 05/17/24 [Rx] Nirmatrelvir/Ritonavir [Paxlovid 150-100 mg Dose Pack] 1 each PO BID #1 each 05/17/24 [Rx] Patient Instructions/Handouts: Droplet Precautions (GEN), COVID-19 (Coronavirus Disease 2019) (DC), Face Coverings (Masks) and COVID-19 (DC) Discharge Disposition: HOME SELF-CARE
[2024-05-17] MEDS ORDERED: METOPROLOL SUCCINATE (ER) 50 MG TAB.ER.24H PO SCH (18:00)
[2024-05-17] MEDS ORDERED: ATORVASTATIN 80 MG TAB PO SCH (18:00)
[2024-05-17] MEDS ORDERED: VALSARTAN 160 MG TAB PO SCH (18:00)
[2024-05-19 13:46] LABS: C. trachomatis,PCR Negative (Negative)
[2024-05-19 14:48] LABS: N. gonorrhoeae,PCR Negative (Negative)
== END 2024-05-17 11:12 | disposition home or self-care (01) | DRG 179 ==
LOC: 4SSUR 17:18
PROVIDERS: ADMIT Internal Medicine; ATTEND Internal Medicine
DX: U07.1 COVID-19 (principal); D70.8 Other neutropenia; D70.3 Neutropenia due to infection; I48.91 Unspecified atrial fibrillation; I10 Essential (primary) hypertension; F17.210 Nicotine dependence, cigarettes, uncomplicated; E78.5 Hyperlipidemia, unspecified; R50.81 Fever presenting with conditions classified elsewhere; Z86.73 Personal history of transient ischemic attack (TIA), and cerebral infarction without residual deficits; Z79.82 Long term (current) use of aspirin; Z79.84 Long term (current) use of oral hypoglycemic drugs; Z79.01 Long term (current) use of anticoagulants; Z79.899 Other long term (current) drug therapy
CPT/HCPCS: 71046; 80048; 80074; 80076; 81001; 82607; 82746; 83615; 83735; 84145; 85025; 85610; 86480; 86780; 87040; 87390; 87491; 87591; 87636; 93005

== ENCOUNTER → 2024-05-22 | Outpatient (CLI) | payer BC ==
--- NOTE | 2024-05-22 10:34 | CT ---
EXAMINATION TYPE: CT chest wo con DATE OF EXAM: 05/22/2024 COMPARISON: 12/04/2023 CLINICAL INDICATION: Male, 64 years old with history of SPN; PHH, follow up to lung nodule, recent co vid TECHNIQUE: CT scan of the thorax is performed without IV contrast. CT DLP: 328.[address] CTDI: mGy Automated exposure control for dose reduction was used. FINDINGS: There are 2 small 3 to 4 mm groundglass densities in the left upper lobe which was not seen on the pr ior study. There is stable mild interstitial density in the lung bases. There is no airspace consolidation. There is no pleural effusion or pneumothorax. There is 4.6 cm dilatation of the ascending thoracic aorta. There is no cardiomegaly. There is no mediastinal, hilar or axillary adenopathy. Limited scanning through the upper abdomen reveals no gross abnormality. No focal osseous lesions are seen. IMPRESSION: 1. 2 small to 3 to 4 mm groundglass densities in the left upper lobe. Follow-up CT thorax in 6 months is recommended to confirm stability. 2. 4.6 cm aneurysmal dilatation of the ascending thoracic aorta. 3. No airspace consolidation or adenopathy within the thorax. [facility], , 05/22/2024 10:32 AM
== END | disposition home or self-care (01) ==
LOC: RADCTMAIN 10:04
PROVIDERS: ATTEND Family Medicine
DX: R91.1 Solitary pulmonary nodule (principal); J98.4 Other disorders of lung; I71.21 Aneurysm of the ascending aorta, without rupture; U07.1 COVID-19
CPT/HCPCS: 71250

== ENCOUNTER → 2024-05-28 | Outpatient (CLI) | payer BC ==
[2024-05-28 15:51] LABS: HCT 40.3 % (39.6-50.0); MCHC 32.3 g/dL (32.0-37.0); MCV 83.8 FL (80.0-97.0); NRBC Per 100 WBC 0 X 10*3/uL (0.00-0.01); Platelet Count 356 X 10*3/uL (140-440); RBC 4.81 X 10*6/uL (4.40-5.60); RDW 13.8 % (11.5-14.5); WBC 2.49 X 10*3/uL (4.50-10.00)
[2024-05-28 16:20] LABS: Blood Urea Nitrogen 23.7 mg/dL (9.0-27.0); Chloride 103 mmol/L (96-109); Potassium 4.4 mmol/L (3.5-5.5); Sodium 136 mmol/L (135-145)
[2024-05-28 16:21] LABS: Basophils # (M) 0 X 10*3/uL (0.00-0.10); Eosinophils # (M) 0 X 10*3/uL (0.04-0.35); Lymphocytes # (M) 1.22 X 10*3/uL (0.90-5.00); Metamyelocytes % 3 % (0-0); Myelocytes % 2 % (0-0); Neutrophils # (M) 0.85 X 10*3/uL (1.80-7.70); Neutrophils % (M) 34 %; RBC Morphology Normal (Normal)
== END | disposition home or self-care (01) ==
LOC: LABPAT 08:14
PROVIDERS: ATTEND Internal Medicine Clinical Cardiac Electrophysiology
DX: Z01.812 Encounter for preprocedural laboratory examination (principal); I48.0 Paroxysmal atrial fibrillation
CPT/HCPCS: 80051; 82565; 83036; 84520; 85025

== ENCOUNTER 2024-06-05 10:00 | Day surgery (SDC) | payer BC ==
[2024-06-05] MEDS: SODIUM CHLORIDE 0.9% 1,000 ML IV SCH (10:25)
[2024-06-05] MEDS: IV FLUID CONTINUATION 1,000 ML IV ONE (10:36)
[2024-06-05 11:23] LABS: ALT 18 U/L (4-49); AST 21 U/L (17-59); African American GFR (CKD) >90 (>60 ml/min/1.73 sqM); Albumin 4.3 g/dL (3.5-5.0); Alkaline Phosphatase 63 U/L (38-126); Anion Gap 4 mmol/L; Blood Urea Nitrogen 17 mg/dL (9-20); Calcium 9.4 mg/dL (8.4-10.2); Carbon Dioxide 26 mmol/L (22-30); Chloride 107 mmol/L (98-107); Glucose 98 mg/dL (74-99); Non-African American GFR(CKD) 88 (>60 ml/min/1.73 sqM); Potassium 4.2 mmol/L (3.5-5.1); Sodium 137 mmol/L (137-145); Total Bilirubin 0.5 mg/dL (0.2-1.3)
[2024-06-05] MEDS ORDERED: PHENYLEPHRINE 10 MG/ML VIAL ONE (11:28)
[2024-06-05] MEDS ORDERED: MIDAZOLAM 2 MG/2 ML VIAL ONE (11:28)
[2024-06-05] MEDS ORDERED: NEOSTIGMINE 1 MG/ML 10 ML VIAL ONE (11:28)
[2024-06-05] MEDS ORDERED: ISOPROTERENOL 250 MCG/1.25 ML SYR IV ONE (11:28)
[2024-06-05] MEDS ORDERED: GLYCOPYRROLATE 0.2 MG/ML 2 ML VIAL ONE (11:28)
[2024-06-05] MEDS ORDERED: HEPARIN SODIUM,PORCINE 10,000 UNIT/ML 1 ML VIAL ONE (11:28)
[2024-06-05] MEDS ORDERED: ROCURONIUM 10 MG/ML (5 ML VIAL) IV ONE (11:28)
[2024-06-05] MEDS ORDERED: FUROSEMIDE 10 MG/ML 2 ML VIAL ONE (11:28)
[2024-06-05] MEDS ORDERED: SUCCINYLCHOLINE CHLORIDE 200 MG/10 ML VIAL IV ONE (11:28)
[2024-06-05] MEDS ORDERED: ceFAZolin 1 GM/50 ML BAG (PMX) ONE (11:28)
[2024-06-05] MEDS ORDERED: PROPOFOL 10 MG/ML 20 ML VIAL IV ONE (11:28)
[2024-06-05] MEDS ORDERED: fentaNYL (PF) 50 MCG/ML 2 ML AMP ONE (11:28)
[2024-06-05] MEDS: HEPARIN SOD,PORK IN 0.45% NACL 25,000 UNIT in 0.45% NACL 1 250ML.BAG IV ONE (11:45)
[2024-06-05] MEDS: LIDOCAINE 1% INJ 10MG/ML (20 ML MDV) SQ ONE (12:12)
[2024-06-05] MEDS: HEPARIN SODIUM,PORCINE (1 ML) 2,500 UNIT in SODIUM CHLORIDE 0.9% 250 ML IRRIGATION ONE (12:15)
[2024-06-05] MEDS: HEPARIN SODIUM,PORCINE 10,000 UNIT in SODIUM CHLORIDE 0.9% 1,000 ML IRRIGATION ONE (12:16)
[2024-06-05] MEDS: LACTATED RINGERS 1,000 ML IV ONE (14:04)
[2024-06-05] MEDS: HEPARIN SODIUM (1,000 UNIT/ML) 1,000 UNIT in SODIUM CHLORIDE 0.9% 1,000 ML IRRIGATION ONE (14:15)
[2024-06-05] MEDS: IOPAMIDOL-370 100ML BTL INJ ONE (15:20)
[2024-06-05] MEDS: LIDOCAINE 2% URO-JET JELLY 5 ML KIT URETHRAL ONE (15:53)
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
--- NOTE | 2024-06-05 16:33 | P.EPPROC ---
- EP Procedure Note Electrophysiology Procedure Note: PROCEDURE A. fib ablation with PVI, left atrial roof ablation, left atrial septum ablation and ablation of LA ridge between left atrial appendage and left sided veins DIAGNOSIS Long paroxysms atrial fibrillation, symptomatic, refractory to therapy, increasing in frequency and duration recently RESULT No left atrial appendage mass seen on intracardiac echo, normal LV function, Successful A. fib ablation/pulmonary vein isolation of all veins using cryo- ablation Complete entrance block in all 4 veins confirmed Left atrial septal ablation Left atrial roof ablation Ablation of the atrial tissue in front of and in between the separate left sided pulmonary veins No evidence for phrenic nerve injury Esophageal deflection YES, left-sided esophagus No inducible atrial fibrillation on and off Isopril with atrial and ventricular stimulation Antegrade slow pathway conduction noted without induction of AV julienne reentry PROCEDURE DETAILS Written informed consent prior to procedure. Patient brought to the EP lab. General anesthesia given. Heparin administered. ACT maintained above 300 seconds Both groins prepped and draped per protocol and venous sheaths placed. Esophagus intubated, circa catheter for temperature monitoring an endoscope for possible esophageal deflection. Phrenic nerve monitoring performed. Esophageal temperature monitoring performed. Esophageal deflection performed if circa catheter overlapping with the balloon or circa temperature less than 27.5C Intracardiac echocardiography performed. Pericardium evaluated. Left atrial appendage evaluated. Left atrium evaluated along with pulmonary veins Transseptal catheterization performed under fluoroscopic guidance and intracardiac echo guidance Cryoablation sheath exchanged, balloon catheter along with achieve catheter placed in the left atrium. Pulmonary veins isolated in the following sequence: Left superior pulmonary vein followed by left inferior pulmonary vein, followed by right inferior pulmonary vein and lastly right superior pulmonary vein. Phrenic nerve stimulation along with capture thresholds within the SVC and right superior pulmonary vein to identify the phrenic nerve proximity to the cryo- balloon. Pulmonary veins isolated and confirmed with entrance and exit block. Phrenic nerve integrity confirmed at the end of the procedure Ablation of the left atrial roof performed with sequential lesions from the left superior to the right superior pulmonary veins. Ablation of the electrograms confirmed Ablation of the left atrial septum performed with cannulation of the superior branch of the right inferior vein to achieve ablation of the posterior septum of the left atrium. Ablation of electrograms confirmed Ablation of the geovanni in between the left superior and left inferior pulmonary vein and the ridge between left-sided veins and the left atrial appendage Diagnostic catheters for the high right atrium, His bundle, coronary sinus placed. LA and RA pressures recorded LA pressure: Diagnostic EP study with coronary sinus pacing and recording Baseline measurements: HV interval 65 ms, HV interval 44 ms MI interval 168 ms, QRS 106 ms, QT 386 ms and sinus cycle length 779 ms Sinus node recovery times over 1136, 1184 and 1169 ms AV node Wenckebach block 300 ms Burst stimulation from the coronary sinus of the high right atrium performed. Intermittent right bundle branch block aberrancy noted with atrial pacing No atrial fibrillation induced on high-dose Isopril atrial extra stimulation with double extrastimuli performed burst stimulation performed Slow pathway noted at a pacing cycle length of 350 ms. No inducible AV julienne reentry VA Wenckebach block on Isopril 270 ms Venous sheaths were removed and hemostasis assured with a closure device. Patient extubated and transferred to recovery Increase procedural time Very large inferior veins Very large right superior pulmonary vein with a large antrum requiring additional RF lesions anteriorly The left superior and left inferior pulmonary veins were fairly separate with a large geovanni in between that required additional and separate ablation. In addition the ridge in between the left atrial appendage and the left-sided veins was ablated This took extra time than usual PROCEDURES PERFORMED Diagnostic EP study CS pacing and recording Left and right transseptal catheterization Catheter the mapping of the tachycardia Intracardiac echocardiography Pulmonary vein isolation with transseptal and comprehensive EPS, [id number] Extended procedure duration Drug infusion, +[id number] Left atrial roof line, +[id number] Linear ablation, left atrium, +[id number] Linear ablation left atrial septum, +[id number]
[2024-06-05] MEDS ORDERED: ACETAMINOPHEN TAB 325 MG TAB PO PRN (16:35)
--- NOTE | 2024-06-05 16:35 | P.PRLE ---
RE: Dakota Berkowitz Dear Bill They have underwent an A-fib ablation with isolation of the pulmonary veins at an antral level and linear ablation in the septum, left atrial roof and in the geovanni between the left-sided veins Following that an EP study was performed both on and off Isopril and despite an aggressive atrial stimulation protocol, atrial fibrillation could not be induced I will continue flecainide 100 mg twice daily for about 2 weeks and then reduce it to 50 mg twice daily for the next 4 to 6 weeks and hopefully in 3 to 4 months we can stop it completely He must stay on Eliquis lifelong and for the next 2 months it must remain uninterrupted without any temporary cessation for any elective procedure Elective procedure should be avoided for the next 2 months Thank you for entrusting me with the care of the patient Warm regards Sincerely Royer Pickens
[2024-06-05] MEDS: ACETAMINOPHEN IV (For NPO) 1,000 MG in EMPTY BAG 1 BAG IVPB ONE (17:22)
[2024-06-05] MEDS: VALSARTAN 160 MG TAB PO SCH (17:37)
[2024-06-05] MEDS: ATORVASTATIN 80 MG TAB PO SCH (17:38)
[2024-06-05] MEDS: APIXABAN 5 MG TAB PO SCH (17:38)
[2024-06-05] MEDS: METOPROLOL SUCCINATE (ER) 50 MG TAB.ER.24H PO SCH (17:38)
[2024-06-05] MEDS: FLECAINIDE 50 MG TAB PO SCH (17:38)
[2024-06-05] MEDS: COLCHICINE 0.6 MG EACH PO SCH (17:38)
[2024-06-06] MEDS: PANTOPRAZOLE 40 MG TABLET PO SCH (05:53)
[2024-06-06] MEDS: ASPIRIN 81 MG PO SCH (05:53)
--- NOTE | 2024-06-06 06:34 | P.DS ---
Providers Attending physician: Royer Pickens Primary care physician: [facility] Hospital Course: Patient is doing well. No chest discomfort dizziness or lightheadedness Ambulating around the room. No hematoma no swelling no bruising in the groins. Sutures have been removed from the groin On examination his blood pressure is normal Heart rate is normal Twelve-lead EKG is normal this morning No JVD No lower extremity edema Impression Recurrent paroxysmal atrial fibrillation refractory to flecainide 100 mg twice daily and beta-blockers Increasing frequency and duration over the last several months Hypertension Type 2 diabetes History of CVA in the past Status post A-fib ablation with antral pulmonary vein isolation, left atrial roof ablation, left atrial septal ablation and ablation of the left atrial ridge between the appendage and left sided pulmonary veins Mildly enlarged aortic root of about 4 cm on intracardiac echo Minimal calcification in the left circumflex on intracardiac echo Anatomic variations noted on intracardiac echo 1. Very large right superior pulmonary vein with a large antrum requiring additional ablation at the antral-atrial junction 2. Very large inferior pulmonary veins. The posterior LA wall is predominantly made up of the antrum of the inferior pulmonary veins, while the superior pulmonary veins have a more anterior takeoff from the roof and are directed anteriorly 3. Internal pulmonary venous distance between left superior and left inferior pulmonary veins almost 1 cm, large geovanni requiring additional ablation in the anterior geovanni as well as the ridge between the appendage and the left-sided veins 4. Relative to the size of the pulmonary veins the atrial size was smaller. After completion of the antral level ablations and the pulmonary veins a small gap was left in the roof and therefore ablation was performed to avoid roof reentry 5. Aortic root is mildly enlarged at around 4 cm on intracardiac echo 5. Patent left main on intracardiac echo with some calcific spots in the left circumflex, minimal 6. [place] left atrial appendage Oral hydration Colchicine Incentive spirometry Continue all other medications Do not stop Eliquis even temporarily for the next 2 months Follow-up in 1 week Plan - Discharge Summary New Discharge Prescriptions: New Colchicine 0.6 mg PO DAILY #10 tablet No Action Flecainide Acetate [Tambocor] 100 mg PO BID@0600,1800 Metoprolol Succinate [Toprol XL] 50 mg PO HS@1800 Multivitamins, Thera [Multivitamin (formulary)] 1 tab PO DAILY@0600 Apixaban [Eliquis] 5 mg PO BID@0600,1800 Acetaminophen Tab [Tylenol] 650 mg PO Q6HR PRN #0 tab PRN Reason: Mild Pain Or Fever > 100.5 Valsartan 320 mg PO HS@1800 Semaglutide [Ozempic] 2 mg SQ MOORE Rosuvastatin Calcium [Crestor] 40 mg PO HS@1800 Aspirin [Adult Low Dose Aspirin EC] 81 mg PO DAILY@0600 Pantoprazole [Protonix] 40 mg PO DAILY@0600 Nirmatrelvir/Ritonavir [Paxlovid 150-100 mg Dose Pack] 1 each PO BID #1 each Discharge Medication List Flecainide Acetate [Tambocor] 100 mg PO BID@0600,1800 05/28/14 [History] Metoprolol Succinate [Toprol XL] 50 mg PO HS@1800 05/28/14 [History] Apixaban [Eliquis] 5 mg PO BID@0600,1800 05/16/24 [History] Aspirin [Adult Low Dose Aspirin EC] 81 mg PO DAILY@0600 05/16/24 [History] Multivitamins, Thera [Multivitamin (formulary)] 1 tab PO DAILY@0600 05/16/24 [History] Pantoprazole [Protonix] 40 mg PO DAILY@0600 05/16/24 [History] Rosuvastatin Calcium [Crestor] 40 mg PO HS@1800 05/16/24 [History] Semaglutide [Ozempic] 2 mg SQ MOORE 05/16/24 [History] Valsartan 320 mg PO HS@1800 05/16/24 [History] Acetaminophen Tab [Tylenol] 650 mg PO Q6HR PRN #0 tab 05/17/24 [Rx] Nirmatrelvir/Ritonavir [Paxlovid 150-100 mg Dose Pack] 1 each PO BID #1 each 05/17/24 [Rx] Colchicine 0.6 mg PO DAILY #10 tablet 06/06/24 [Rx] Follow up Appointment(s)/Referral(s): Royer Pickens MD [STAFF PHYSICIAN] - 1 Week Activity/Diet/Wound Care/Special Instructions: Post EP study - Ablation instructions 1. Keep access sites dry for 2 days. 2. No heavy lifting or straining for 2 days. 3. Avoid bending the hips repeatedly for 2 days. 4. You may go up and down stairs slowly 5. If you have had an ablation for atrial fibrillation or atrial flutter and are on a blood thinner, do not stop the blood thinner even temporarily for 3 months post ablation Call if the following is noted 1. Bleeding, increasing swelling or pain at the access sites. 2. Increasing chest discomfort, especially upon taking a deep breath. 3. Increasing shortness of breath, at rest or with exertion. 4. Undue cough / phlegm 5. Difficulty or pain while swallowing. 6. Pain or change in color in the extremities. 7. Fever, chills, rigors. 8. Increasing headache or neurologic symptoms. 9. Dizziness, fainting, palpitations For patients who have undergone an A-fib ablation /atrial flutter ablation Strict instruction; do NOT stop anticoagulation (Eliquis/Xarelto/Pradaxa) for the next 2 months temporarily, for any elective, nonurgent surgery. This increases the risk of stroke, post A-fib ablation Colchicine 0.6 mg p.o. daily for 7 to 10 days and adequate oral hydration Incentive spirometry Discharge Disposition: HOME SELF-CARE
[2024-06-06 07:33] VITALS: BP 113/76; PULSE 86; RESP 16; TEMP 98.1
[2024-06-08] MEDS ORDERED: Semaglutide [Ozempic] 2 MG/0.75 ML Pen.Injctr SQ SCH (09:00)
== END 2024-06-06 09:00 | disposition home or self-care (01) ==
LOC: CATHEP 10:00 → 6NMEDSUR 15:40 → CATHEP 06-06 09:00
PROVIDERS: ATTEND Internal Medicine Clinical Cardiac Electrophysiology
DX: I48.19 Other persistent atrial fibrillation (principal); I48.0 Paroxysmal atrial fibrillation; I10 Essential (primary) hypertension; E78.5 Hyperlipidemia, unspecified; E11.9 Type 2 diabetes mellitus without complications; I70.0 Atherosclerosis of aorta; K21.9 Gastro-esophageal reflux disease without esophagitis; Z79.01 Long term (current) use of anticoagulants; Z79.82 Long term (current) use of aspirin; Z79.85 Long-term (current) use of injectable non-insulin antidiabetic drugs; Z79.899 Other long term (current) drug therapy; Z82.49 Family history of ischemic heart disease and other diseases of the circulatory system; Z86.73 Personal history of transient ischemic attack (TIA), and cerebral infarction without residual deficits
CPT/HCPCS: 93623; 93656; 93657; 86900; 86901; 80053; 84443; 86850; J2250; J0330; J1644 ×4; J1940; J2710; J2003; J3010; J0690; J2704; Q9967; J2371; J1596

== ENCOUNTER 2024-10-01 01:57 | Emergency (ER) | payer BC ==
[2024-10-01 02:07] VITALS: TEMP 98.1
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
[2024-10-01] MEDS: SODIUM CHLORIDE 0.9% 1,000 ML IV ONE (02:31)
[2024-10-01 02:55] LABS: Basophils # (A) 0.02 10*3/uL (0.00-0.10); Basophils % (A) 0.5 %; Eosinophils # (A) 0.04 10*3/uL (0.04-0.35); Eosinophils % (A) 1.1 %; HCT 43.3 % (39.6-50.0); HGB 14.1 g/dL (13.0-17.0); Lymphocytes % (A) 54.6 %; MCHC 32.6 g/dL (32.0-37.0); Mean Platelet Volume 10.5 fL (9.5-12.2); Monocytes % (A) 16.4 %; Neutrophils # (A) 0.66 10*3/uL (1.80-7.70); Neutrophils % (A) 18.1 %; Platelet Count 243 10*3/uL (140-440); RBC 5.22 10*6/uL (4.40-5.60); RDW 14.6 % (11.5-14.5); WBC 3.66 10*3/uL (4.50-10.00)
[2024-10-01 03:06] LABS: Partial Thromboplastin Time 25.4 sec (22.0-30.0); Prothrombin Time 11.2 sec (10.0-12.5)
[2024-10-01 03:08] LABS: ALT 25 U/L (4-49); AST 24 U/L (17-59); African American GFR (CKD) >90 (>60 ml/min/1.73 sqM); Alkaline Phosphatase 52 U/L (38-126); Amylase 58 U/L (30-110); Anion Gap 6 mmol/L; Blood Urea Nitrogen 16 mg/dL (9-20); Calcium 9.3 mg/dL (8.4-10.2); Carbon Dioxide 27 mmol/L (22-30); Chloride 103 mmol/L (98-107); Glucose 106 mg/dL (74-99); Lipase 404 U/L (23-300); Non-African American GFR(CKD) 83 (>60 ml/min/1.73 sqM); Potassium 4.5 mmol/L (3.5-5.1); Sodium 136 mmol/L (137-145); Total Bilirubin 0.6 mg/dL (0.2-1.3)
[2024-10-01 03:14] VITALS: BP 129/86; PULSE 74; RESP 16
[2024-10-01 03:17] LABS: Anisocytosis (M) Present; Ovalocytes Present; Polychromasia Present
--- NOTE | 2024-10-01 03:33 | CT ---
EXAM: CT Head Without Intravenous Contrast CLINICAL HISTORY: ITS.REASON CT Reason: pain TECHNIQUE: Axial computed tomography images of the head/brain without intravenous contrast. CTDI is 49.2 mGy and DLP is 1225 mGy-cm. This CT exam was performed using one or more of the following dose reduction techniques: automated exposure control, adjustment of the mA and/or kV according to patient size, and/or use of iterative reconstruction technique. COMPARISON: No relevant prior studies available. FINDINGS: Brain: No hemorrhage or mass effect. Old right parietal infarct Ventricles: No hydrocephalus. Bones/joints: Unremarkable. Soft tissues: Unremarkable. Sinuses: No air fluid level. Mastoid air cells: Clear. IMPRESSION: No acute hemorrhage, hydrocephalus, or mass effect.
[2024-10-01] MEDS: chlorproMAZINE 50 MG in SODIUM CHLORIDE 0.9% 50 ML IV SCH (04:02)
[2024-10-01] MEDS: PANTOPRAZOLE 40 MG/10 ML VIAL IV STA (04:04)
[2024-10-01] MEDS: chlorproMAZINE 25 MG TAB PO STA (04:07)
[2024-10-01] MEDS: BENZONATATE 100 MG CAP PO STA (04:07)
--- NOTE | 2024-10-01 05:31 | CT ---
EXAM: CT Chest, Abdomen and Pelvis With Intravenous Contrast CLINICAL HISTORY: ITS.REASON CT Reason: pain TECHNIQUE: Axial computed tomography images of the chest, abdomen and pelvis with intravenous contrast. CTDI is 22.7 mGy and DLP is 952.6 mGy-cm. This CT exam was performed using one or more of the following dose reduction techniques: automated exposure control, adjustment of the mA and/or kV according to patient size, and/or use of iterative reconstruction technique. Imaging was obtained and arterial phase. COMPARISON: No relevant prior studies available. FINDINGS: CHEST: Lungs: Unremarkable. No mass. No consolidation. Pleural space: Unremarkable. No significant effusion. No pneumothorax. Heart: Coronary artery calcifications. No cardiomegaly. No significant pericardial effusion. ABDOMEN: Liver: Unremarkable. No mass. Gallbladder and bile ducts: Unremarkable. No calcified stones. No ductal dilation. Pancreas: Unremarkable. No ductal dilation. No mass. Spleen: Unremarkable. No splenomegaly. Adrenals: Unremarkable. No mass. Kidneys and ureters: Unremarkable. No hydronephrosis. No solid mass. Stomach and bowel: No evidence of bowel obstruction. Liquid colonic contents. Findings can be seen with sequela of diarrheal illness. No mucosal thickening. PELVIS: Appendix: No findings to suggest acute appendicitis. Bladder: Mild bladder wall thickening which can be seen with underdistention. Cystitis is also possible. Consider correlation with laboratory values. Reproductive: Unremarkable as visualized. CHEST, ABDOMEN and PELVIS: Intraperitoneal space: Unremarkable. No significant fluid collection. No free air. Bones/joints: Degenerative changes in the spine. Flowing osteophyte formations in the spine compatible with diffuse idiopathic skeletal hyperostosis (DISH). No acute fracture. No dislocation. Soft tissues: Gynecomastia. Vasculature: Ascending aortic dilatation measuring up to 4.5 cm. Lymph nodes: Unremarkable. No enlarged lymph nodes. Other findings: Unclear history. IMPRESSION: 1. Unclear history. 2. Liquid colonic contents. Findings can be seen with sequela of diarrheal illness. 3. Mild bladder wall thickening which can be seen with underdistention. Cystitis is also possible. Consider correlation with laboratory values. 4. Ascending aortic dilatation measuring up to 4.5 cm. 5. No other acute findings. 6. Incidental findings as described.
== END 2024-10-01 04:22 | disposition home or self-care (01) ==
LOC: EC 01:57
DX: R06.6 Hiccough (principal); Z86.73 Personal history of transient ischemic attack (TIA), and cerebral infarction without residual deficits
CPT/HCPCS: 36415; 80053; 82150; 83690; 84484; 85025; 85610; 85730; 70450; 71260; 74177; 99284; 96360; Q9967